=== PATIENT | female | born 1980 | race Caucasian/White ===

== ENCOUNTER 2022-04-04 09:53 | Outpatient (CLI) | payer OTHER, SELFPAY ==
[2022-04-04 11:40] LABS: Ferritin* 24.3 ng/mL (6.24-137.0)
== END 2022-04-04 09:54 | disposition home or self-care (01) ==
PROVIDERS: PCP Family Medicine; Visit Provider Family Medicine
DX: N92.0 Excessive and frequent menstruation with regular cycle (principal); R53.83 Other fatigue
CPT/HCPCS: 82728; 84443

== ENCOUNTER 2022-04-18 11:52 | Outpatient (CLI) | payer OTHER, SELFPAY ==
--- NOTE | 2022-04-18 12:15 | CRLHL7_ITS ---
For Patients: As a result of the Century Cures Act, medical imaging exams and procedure reports are released immediately into your electronic medical record. You may view this report before your referring provider. If you have questions, please contact your health care provider. INDICATION: EXCESSIVE AND FREQUENT MENSTRUATION COMPARISON: none TECHNIQUE: 2D crockett scale and color Doppler images were acquired of the pelvis using a transabdominal and transvaginal approach. FINDINGS: Sonographic images demonstrate a normal size and smooth outer contour of the uterus. Uterus measures 9.5 cm in length by 5.2 cm in AP diameter by 5.3 cm in transverse dimension. The myometrium has a heterogeneous echotexture. The endometrial lining measures 3 mm in composite thickness. The right ovary measures 3.4 x 2.4 x 2.4 cm in size and the left ovary measures 2.6 x 1.8 x 1.7 cm. The ovaries demonstrate normal arterial and venous blood flow on color Doppler analysis. There are no suspicious fluid collections within the cul-de-sac. IMPRESSION: Endometrial thickness 3 millimeters. No uterine fibroid. Dictated by Marcin Bruner MD @ 04/18/2022 1:10:43 PM (Electronically Signed)
== END 2022-04-18 11:53 | disposition home or self-care (01) ==
LOC: US 11:53
PROVIDERS: PCP Family Medicine; Visit Provider Family Medicine
DX: N92.0 Excessive and frequent menstruation with regular cycle (principal)
CPT/HCPCS: 76830; 76856

== ENCOUNTER 2022-06-10 06:25 | Day surgery (SDC) | payer OTHER, SELFPAY ==
[2022-06-10 06:39] VITALS: BMI 26.4
[2022-06-10] MEDS: LACTATED RINGERS 1000 ML 1,000 ML 100 ML IV (06:45)
[2022-06-10] MEDS: SODIUM CHLORIDE 0.9 % (FLUSH) 10 ML SYRINGE IVF (06:45)
[2022-06-10 06:47] VITALS: BP 112/72; PULSE 61; RESP 16; TEMP 36.3; O2SAT 98
[2022-06-10 06:52] LABS: Ur HCG Qualitative* Negative (Negative)
--- NOTE | 2022-06-10 08:10 | P.GYNPRC_ITS ---
Procedure Note Date Seen: 06/10/22 Procedure Details: REFERRING PHSICIAN/PROVIDER: Blanca PREOPERATIVE DIAGNOSIS: Menorrhagia, failed medical management. POSTOPERATIVE DIAGNOSIS: Menorrhagia, failed medical management. NAME OF PROCEDURE: 1. Hysteroscopy. 2. D and C 3. Susan endometrial ablation. SURGEON: Roosevelt ANESTHESIA: Monitored anesthesia care and paracervical block COMPLICATIONS: None. ESTIMATED BLOOD LOSS: Less than 10 mL. FLUID DEFICIT: 90 mL. FINDINGS: Normal-appearing endometrial cavity and tubal ostia bilaterally.. PATHOLOGY SPECIMENS: Endometrial curettings. PROCEDURE: After obtaining informed consent, the patient was taken to the operating room where she received monitored anesthesia care. She was prepared and draped in the normal sterile fashion, in the dorsal lithotomy position. An open-sided bivalve speculum was introduced into the vagina and the cervix visualized. The anterior lip of the cervix was grasped with a single-tooth tenaculum for traction. A paracervical block was then administered using a total of 10 mL of 0.25% Marcaine plain. The uterus was gently sounded. Sound length was 9 cm. The cervix length was determined to be 3.5 cm using Hegar dilators, yielding a uterine cavity length of 5.5 cm. The cervix was gently dilated to a #6 Hegar dilator. A hysteroscope was then advanced under direct visualization through the cervix into the uterine cavity. Sterile normal saline was used as distending medium. The uterine cav ity was carefully inspected with the findings noted above. The hysteroscope was then removed. The endometrial lining was then sharply curetted. The Susan device was then set to a cavity length of 5.5 cm, inserted through the cervical os into the uterine cavity to the level of the fundus, and deployed. The device was sealed against the cervix. The safety checks were then passed x2 and the 2- minute treatment cycle initiated. Following completion of the treatment cycle, the Susan device was removed. A paracervical block was then administered using a total of 10 mL of 0.25% Marcaine plain. The hysteroscope was advanced again into the uterine cavity and the uterine cavity inspected. A good ablation was noted from the internal os to fundus and to the cornua bilaterally. Pictures were taken for documentation purposes. The hysteroscope was removed. The tenaculum was removed. There was little bleeding from the tenaculum site, which was controlled with direct pressure sponge stick. All instruments were then removed. The patient tolerated the procedure well. Sponge, lap, needle, and instrument counts reported as correct x2. The patient was taken to the recovery room awake in a stable condition.
[2022-06-10] MEDS: BUPIVACAINE 0.25% 30 ML INJECTION (08:40)
--- NOTE | 2022-06-10 08:54 | W.ANESCHARGE ---
Anesthesia Charges Start Date/Time Anesthesia Start Date: 06/10/22 Anesthesia Start Time: 08:13 Stop Date/Time Anesthesia Stop Date: 06/10/22 Anesthesia Stop Time: 08:55 Summary Emergency: No
[2022-06-10 08:55] VITALS: BP 95/59; PULSE 65; RESP 16; TEMP 36.1; O2SAT 93
[2022-06-10 09:00] VITALS: BP 94/65; PULSE 67; RESP 16; O2SAT 95
--- NOTE | 2022-06-10 09:05 | W.ANESCHARGE ---
Anesthesia Charges Start Date/Time Anesthesia Start Date: 06/10/22 Anesthesia Start Time: 08:13 Stop Date/Time Anesthesia Stop Date: 06/10/22 Anesthesia Stop Time: 08:55 Summary Emergency: No
[2022-06-10 09:15] VITALS: BP 93/54; PULSE 55; RESP 16; O2SAT 95
[2022-06-10 09:30] VITALS: BP 100/66; PULSE 55; RESP 16; TEMP 36.2; O2SAT 95
[2022-06-10 09:40] VITALS: BP 102/67; PULSE 58; RESP 16; O2SAT 97
== END 2022-06-10 09:45 | disposition home or self-care (01) ==
PROVIDERS: PCP Family Medicine; Visit Provider Obstetrics & Gynecology
PROC: 0UF98ZZ Fragmentation in Uterus, Via Natural or Artificial Opening Endoscopic (ICD-10-PCS; CPT 58563; principal; 2022-06-10 07:45)
DX: N92.0 Excessive and frequent menstruation with regular cycle (principal)
CPT/HCPCS: 58563; 00952; 81025; 88305; J1100; J2250; J2405; J2704; J3010; J3490; J7120

== ENCOUNTER 2023-02-18 12:48 | Outpatient (CLI) | payer OTHER, SELFPAY ==
--- NOTE | 2023-02-18 13:00 | CRLHL7_ITS ---
For Patients: As a result of the Century Cures Act, medical imaging exams and procedure reports are released immediately into your electronic medical record. You may view this report before your referring provider. If you have questions, please contact your health care provider. BILATERAL SCREENING MAMMOGRAM WITH COMPUTER-AIDED DETECTION AND TOMOSYNTHESIS TECHNIQUE: CC and MLO views were obtained. These mammographic images have been obtained using full-field digital technique. These mammographic images were interpreted with the benefit of computer-aided detection. Breast Tomosynthesis was used in this interpretation. COMPARISON FILM: 01/03/22. FINDINGS: There are scattered areas of fibroglandular density IMPRESSION: There is no radiographic evidence for malignancy. ASSESSMENT: BI-RADS Category 1: Negative RECOMMENDATION: Routine screening mammogram in 1 year. A lay language report of this examination will be provided to the patient. Marcin Bruner M.D. Diagnostic Radiologist [email or web address] Transcribed: 5:30 p.rodo david/Dictated by: Marcin Bruner MD @ 02/19/2023 9:27:00 AM (Electronically Signed)
== END 2023-02-18 12:49 | disposition home or self-care (01) ==
LOC: MAMMO 12:48
PROVIDERS: PCP Family Medicine; Visit Provider Family Medicine
DX: Z12.31 Encounter for screening mammogram for malignant neoplasm of breast (principal)
CPT/HCPCS: 77063; 77067

== ENCOUNTER 2023-10-02 09:04 | Outpatient (CLI) | payer OTHER, SELFPAY ==
--- NOTE | 2023-10-02 09:15 | MR_ITS ---
Patient: HEVER HOLLIS Facility:?[facility] Patient ID:?[id number] Site Patient ID:?[id number] Site :?[id number] Study:?MRI-Breast W/ and W/O Cont 20 CC DOATERM-10/31/2023 3:40:48 PM Ordering Physician:CYNTHIA MORALES Final Report: Please note, study was performed on 10/02/2023. BILATERAL BREAST MRI WITHOUT AND WITH GADOLINIUM CLINICAL HISTORY: Genetic susceptibility to other malignant neoplasm. INDICATION FOR BREAST MRI: Screening breast MRI in this high-risk woman. COMPARISON STUDIES: Mammogram 02/18/2023. CONTRAST: 20 cc Dotarem. TECHNIQUE: The patient was positioned prone using a breast coil. Multiple imaging sequences were obtained using 1-1.5 mm thick slices with no gap. The image sequences include T2-weighted STIR in the axial plane, T1-weighted nonfat- saturated gradient echo in the axial plane, pre- and post-contrast T1-weighted FLASH 3D with fat suppression in the axial plane, and T1-weighted FLASH high- resolution 3D with fat suppression in the sagittal plane. Image post-processing was performed on a [employer] workstation. Complex 3D rendering including maximum intensity projections (MIPS) and volumetric renderings were obtained to optimize visualization of the extent of pathology and relationship to the nipple, skin, and chest wall. This aids in determining feasibility of breast conservation surgery. Subtraction, multiplanar reconstruction, mean curve determination, and angiogenesis mapping were also performed. The study was technically adequate. FINDINGS: Amount of Fibroglandular Tissue: Scattered fibroglandular tissue. Breast Background Enhancement: Mild. RIGHT/LEFT Breast: No suspicious enhancement in either breast. Lymph Nodes: No morphologically abnormal axillary lymph nodes. IMPRESSION: No MRI findings for malignancy in either breast. No morphologically abnormal axillary lymph nodes or intramammary lymph nodes. Recommend that the patient continue with yearly screening mammography. If screening MRIs are felt to be indicated recommend that these be offset at six-month intervals with the screening mammogram. BI-RADS Category 2: Benign Dictated by: Jessica Sanders MD @11/04/2023 9:46:38 AM jj/Dictated by: Jessica Sanders MD @ 11/04/2023 9:46:00 AM Signed by:?Jessica Sanders MD @11/04/2023 11:47:26 AM (Electronic Signature)
== END 2023-10-02 09:05 | disposition home or self-care (01) ==
LOC: MRI 09:05
PROVIDERS: PCP Family Medicine; Visit Provider Family Medicine
DX: Z12.39 Encounter for other screening for malignant neoplasm of breast (principal); Z15.01 Genetic susceptibility to malignant neoplasm of breast; Z15.09 Genetic susceptibility to other malignant neoplasm; Z15.89 Genetic susceptibility to other disease
CPT/HCPCS: 77049; A9575

== ENCOUNTER 2023-10-09 08:24 | Outpatient (CLI) | payer OTHER, SELFPAY ==
--- OUTSIDE RECORDS SUMMARY | 2023-10-09 08:27 | XMS_ITS | Encounter Summary ---
Author Name Unknown Organization [facility] Address [address] [place] [address] Care Team Providers Care Marine Diesel Technician Name Role Phone Marylin Caceres MD Primary Care Provider [phone] Encounter Details Date Type Department Care Team (Late st Contact Info) Description 06/23/2012 Correspondence [facility] [address] [place] [phone] Ruben Morin DC CHIROPRACTIC PT LIABILITY PAW Social History Tobacco Use Types Packs/Day Years Used Date Smoking Tobacco: Never Alcohol Use Standard Drinks/Week Comments Not Asked 0 (1 standard drink = 0.6 oz pur e alcohol) Sex and Gender Information Value Date Recorded Sex Assigned at Female 07/16/2021 10:37 PM PRECISION LATHE OPERATOR Gender Identity Female 07/16/2021 10:37 PM PRECISION LATHE OPERATOR Sexual Orientation Straight 07/16/2021 10 :37 PM PRECISION LATHE OPERATOR documented as of this encounter Progress Notes * Ruben Morin DC - 06/23/2012 12:00 AM CDT ISION LATHE OPERATOR documented in this encounter Plan of Treatment Not on file documented as of this encounter Visit Diagnoses Not on filedocumented in this encounter Additional Health Concerns Infection Onset Date Last Indicated Resolved Time R/O COVID19 12/28/2020 12/28/2020 12/28/2020 6:24 PM CDT documented as of this encounter Care Teams Marine Diesel Technician Relationship Specialty Start Date End Date Marylin Caceres MD [address] [place] [address] PCP - General Family Practice 02/08/19 documented as of this encounter
--- OUTSIDE RECORDS SUMMARY | 2023-10-09 08:27 | XMS_ITS | Clinical Summary ---
Author Name Unknown Organization [facility] Address [place], [place] [address] Care Team Providers Care Bleacher Lard Name Role Phone Nidia Rios MD Primary Care Provider + Allergies Active Allergy Reactions Criticality Noted Date Comments Latex Hives 03/27/2015 Medications Medication Sig Dispensed Refills Start Date End Date Status PNV WITH CA,NO.72/IRON/FA ( VITAMINS LOW IRON ORAL) Take by mouth. 0 Active escitalopram oxalate (LEXAPRO) 20 mg tablet 0 07/10/2020 Ac tive spironolactone (ALDACTONE) 50 mg tablet Take 50 mg by mouth every morning. 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 Other known or suspected fet al abnormality, not elsewhere classified, affecting management of mother, unspecified as to episode of care 02/17/2008 Encounters Date Type Department Care Team Description 07/24/[address] [facility] [place] [address] [facility] [address] [place] [address] Kitty Pastrana MS, [facility] Results (Cancer genetic testing results) 07/23/[address] [facility] [place] [address] [facility] [address] [place], [place] [address] Kitty Pastrana, MS, [facility] Results (Cancer genetic testing results) from Last 3 Months Social History Tobacco Use Types Packs/Day Years Used Date Smoking Tobacco: Never Alcohol Use Standard Drinks/Week Comments Yes 0 (1 standard drink = 0.6 oz pur e alcohol) Sex and Gender Information Value Date Recorded Sex Assigned at Not on file Gender Identity Not on file Sexual Orientation Not on file Obstetrics History Last Filed Vital Signs Vital Sign Reading Time Taken Comments Blood Pressure 107/72 03/31/2022 3:53 PM CDT Pulse 86 03/31/2022 3:53 PM CDT Temperature 36.9 ??C (98.5 ??F) 03/31/2022 3:53 PM CD T Respiratory Rate 14 03/31/2022 3:53 PM CDT Oxygen Saturation 98% 03/31/2022 3:53 PM CDT Inhaled Oxygen Concentration - - Weight 73.5 kg (162 lb) 03/31/2022 3:53 PM CDT Height 170.2 cm (5' 7) 03/31/2022 3:53 PM CDT Body Mass Index 25.37 03/31/2022 3:53 PM CDT Plan of Treatment Health Maintenance Due Date Last Done Comments Tdap 1992 Depression screening for age 12+ 1993 HIV for age 15-65 1996 BMI (ht and wt on same day) for age 18+ 1999 Hepatitis C screening for age 18-79 1999 Tetanus booster 2001 Pap test for age 21-65 05/28/2020 05/28/2017, 2016 Influenza for age 9-49 04/24/2023 COVID-19 vaccine series Completed 05/23/20, 05/03/2022, 06/21/2021, Additional history exists Pneumococcal series for age 6-64 Aged Out No longer eligible based on patient's age to complete this topic Care Teams Bleacher Lard Relationship Specialty Start Date End Date Nidia Rios MD [address] [place] [address] PCP - General Family Practice 06/30/23
--- OUTSIDE RECORDS SUMMARY | 2023-10-09 08:27 | XMS_ITS | Encounter Summary ---
Author Name Unknown Organization [facility] Address [address] [place] [address] Care Team Providers Care Hotel Front Desk Clerk Name Role Phone Marylin Caceres MD Primary Care Provider [phone] Reason for Visit * Reason Comments Problem Focused Exam UL canine-gum tende r and sore Encounter Details Date Type Department Care Team (Late st Contact Info) Description 04/01/2023 Telephone [facility] [address] [address] No Primary/Referring, Phy Problem Focused Exam (UL canine-gum tender and sore) Social History Tobacco Use Types Packs/Day Years Used Date Smoking Tobacco: Never Smokeless Tobacco: Never Alcohol Use Standard Drinks/Week Comments Yes 1 (1 standard drink = 0.6 oz pur e alcohol) Sex and Gender Information Value Date Recorded Sex Assigned at Female 07/16/2021 10:37 PM EDUCATION ASSISTANT Gender Identity Female 07/16/2021 10:37 PM EDUCATION ASSISTANT Sexual Orientation Straight 07/16/2021 10 :37 PM EDUCATION ASSISTANT documented as of this encounter Plan of Treatment Not on file documented as of this encounter Visit Diagnoses Not on filedocumented in this encounter Care Teams Hotel Front Desk Clerk Relationship Specialty Start Date End Date Marylin Caceres MD [address] [place] [address] PCP - General Family Practice 02/08/19 documented as of this encounter
--- OUTSIDE RECORDS SUMMARY | 2023-10-09 08:27 | XMS_ITS | Encounter Summary ---
Author Name Unknown Organization [facility] Address [address] [place] [address] Care Team Providers Care Chemical Treatment Plant Technician Name Role Phone Marylin Caceres MD Primary Care Provider [phone] Reason for Visit * Reason Comments Dental Hygiene NO CC Encounter Details Date Type Department Care Team (Late st Contact Info) Description 06/10/2023 10:10 AM CDT Office Visit [facility] [address] [address] Marilee Akers, [facility] [address] [place] [id number] Dental Hygiene (NO CC/) Social History Tobacco Use Types Packs/Day Years Used Date Smoking Tobacco: Never Smokeless Tobacco: Never Alcohol Use Standard Drinks/Week Comments Yes 1 (1 standard drink = 0.6 oz pur e alcohol) Sex and Gender Information Value Date Recorded Sex Assigned at Female 07/16/2021 10:37 PM MAKE UP EDITOR Gender Identity Female 07/16/2021 10:37 PM MAKE UP EDITOR Sexual Orientation Straight 07/16/2021 10 :37 PM MAKE UP EDITOR documented as of this encounter Last Filed Vital Signs Vital Sign Reading Time Taken Comments Blood Pressure - - Pulse 69 06/10/2023 10:15 AM CDT Temperature - - Respiratory Rate - - Oxygen Saturation - - Inhaled Oxygen Concentration - - Weight - - Height - - Body Mass Index - - documented in this encounter Progress Notes * Marilee Akers RD - 06/10/2023 10:10 AM CDT HYGIENE PROPHY NOTE COLLABORATIVE AGREEMENT: The patient consents to have charting, radiographs, and prophylaxis by [facility] performed with the understanding that this care is not a substitute for an examination by a dentist. These activities were performed under a collaborating agreement with Emely Leach DDS (License#: [id number]) PROCEDURAL PAUSE: Patient identity verified: Yes Treatment plan/site verified with the patient: Yes Instruments/equipment verified: Yes Any medication/allergy contraindications: No PRESENTATION: Plaque: Generalized light Calculus: Localized, moderate supra-gingival , sub-gingival, interproximal, mandibular anterior, and posterior buccal Stain: None Bleeding: Localized light Gingival tissue: Normal ACTIVITIES: Hand scale, Essential selective polishing, Flossed all contacts, and OHI NEXT PLANNED HYGIENE VISIT: Hygiene Prophy with exam Marilee Akers RDH 06/10/2023, 10:56 AM --End of Note-- * Emely Leach DDS - 06/10/2023 10:10 AM CDT RECALL EXAM NOTE REASON FOR VISIT/CHIEF COMPLAINT: Carin is a 42 y.o. female who presents for Dental Hygiene (NO CC/) CHART REVIEW: Reviewed with patient: Medical history, Dental history, Problem list, Periodontal charting, and Radiographs. SOFT TISSUE, HEAD AND NECK EXAMINATION: Lips: normal Tongue: crenations Palate: normal Throat: normal Floor of the mouth: normal Mucosa: normal Head and neck: normal TMD EVALUATION: Palpation Pain: None Joint Sounds: None Pain with Range of Motion: None OCCLUSAL EXAMINATION: Unchanged COSMETIC CONCERNS: Patient's Perception: Acceptable Dentist's Perception: Acceptable TREATMENT REVIEW AND FOLLOW-UP: Discussed the Dental findings, Prognosis, and Treatment options with the patient. All questions answered and informed consent was obtained. Planned Recall Interval: Examination: 6 months Recall prophy: 6 months RX for nikki syed. Open contact between # 20 and # 19 recommended filling on # 20 D Next Planned Visit: recall Emely Leach DDS 06/10/2023, 10:39 AM --End of Note-- documented in this encounter Plan of Treatment Scheduled Orders Name Type Priority Associated Diagnoses Order Schedule PROPHYLAXIS-ADULT RECALL Dental Procedures Routine 1 Occurrences starting 06/10/2023 PERIODIC ORAL EVALUATION Dental Procedures Routine 1 Occurrences starting 06/10/2023 documented as of this encounter Procedures Procedure Name Priority Date/Time Associated Diagnosis Comments [id number] Routine 06/10/2023 10 :10 AM CDT Localized gingival recession PERIODIC ORAL EVALUATION Routine 06/10/2023 10:10 AM CDT Localized gingival recession PROPHYLAXIS-ADULT RECALL Routine 06/10/2023 10:10 AM CDT Localized gingival recession documented in this encounter Visit Diagnoses Diagnosis Failure of dental latter-day to preserve anatomical integrity with adjacent teeth- Primary Localized gingival recession Gingival recession, localized documented in this encounter Care Teams Chemical Treatment Plant Technician Relationship Specialty Start Date End Date Marylin Caceres MD [address] [place] [address] PCP - General Family Practice 02/08/19 documented as of this encounter
--- OUTSIDE RECORDS SUMMARY | 2023-10-09 08:27 | XMS_ITS | Encounter Summary ---
Author Name Unknown Organization [facility] Address [address] [place] [address] Care Team Providers Care Belt Back Operator Name Role Phone Marylin Caceres MD Primary Care Provider [phone] Reason for Visit * Reason Comments Restorative Services Composite filling # 20. Encounter Details Date Type Department Care Team (Late st Contact Info) Description 07/08/2023 8:00 AM TOOL MACHINE SHOP SUPERVISOR Office Visit [facility] Dental [address] [id number] Emely Leach, DDS [address] [place], [place] [id number] Restorative Services (Composite filling # 20.) Social History Tobacco Use Types Packs/Day Years Used Date Smoking Tobacco: Never Smokeless Tobacco: Never Alcohol Use Standard Drinks/Week Comments Yes 1 (1 standard drink = 0.6 oz pur e alcohol) Sex and Gender Information Value Date Recorded Sex Assigned at Female 07/16/2021 10:37 PM TOOL MACHINE SHOP SUPERVISOR Gender Identity Female 07/16/2021 10:37 PM TOOL MACHINE SHOP SUPERVISOR Sexual Orientation Straight 07/16/2021 10 :37 PM TOOL MACHINE SHOP SUPERVISOR documented as of this encounter Progress Notes * Emely Leach DDTiffany - 07/08/2023 8:00 AM CST DENTAL VISIT NOTE Subjective Reason for Visit/Chief Complaint: Carin is a 42 y.o. female who presents for Restorative Services (Composite filling # 20.) Chief Complaint: No CC Objective/Assessment Chart Review: The following information was reviewed with the patient: Medical history, Dental history, Problem list, Periodontal charting, and Radiographs. RADIOGRAPHIC INTERPRETATION: #20 Caries DIAGNOSIS: Defective dental buddhism (primary encounter diagnosis) PROGNOSIS: #20 Favorable Plan Treatment Discussion: I discussed the Dental findings, Prognosis, Treatment options, Risks and complications associated with procedure, and Billing/Treatment estimate with patient. All questions answered and the patient gave informed consent to proceed with dental treatment/services. Procedural Pause: Patient identity verified: Yes Treatment plan/site verified with the patient: Yes Instruments/equipment verified: Yes Any medication/allergy contraindications: No Completed Procedures: ANESTHESIA: Topical with 20% benzocaine 1.0 carpules 2% lidocaine with 1:100,000 epinephrine was administered with MURPHY in Mandibular No adverse side effects observed. Anesthesia was administered by Emely Leach DDS COMPOSITE HOAHAOISM, #20: Prepared with complete caries removal Isolated area with high speed suction, cotton rolls, and a cheek guard. Applied desensitizer Bonding with Scotchbond Vassar Plus material Preparation filled with composite material : Shade: A3 Polishing adjuncts: Enhance Composite Polishing Cup Verified occlusion, contacts, margins, and aesthetics POST-OP INSTRUCTIONS: Patient was advised of normal post-operative instructions, potential for post-operative sensitivity, potential need for additional treatment because of proximity to the pulp, and the need to exercise care because of the risk of fracture Ibuprofen (Advil) 600 mg PO q 6 hours Care was assisted by BRENDA Connell Next Planned Visit: recall Emely Leach DDS 07/08/2023, 8:44 AM --End of Progress Note-- 8:02 AM MACHINE SHOP SUPERVISOR documented in this encounter Plan of Treatment Not on file documented as of this encounter Procedures Procedure Name Priority Date/Time Associated Diagnosis Comments 20 DO RESIN-BASED COMPOSITE-2 SURF-POSTERIOR Routine 07/08/2023 8:00 AM TOOL MACHINE SHOP SUPERVISOR Defective dental buddhism Dental caries limited to outer third of dentin Failure of dental buddhism to preserve anatomical integrity with adjacent teeth documented in this encounter Visit Diagnoses Diagnosis Defective dental buddhism- Primary Unspecified unsatisfactory buddhism of tooth Dental caries limited to outer third of dentin Failure of dental buddhism to preserve anatomical integrity with adjacent teeth documented in this encounter Care Teams Belt Back Operator Relationship Specialty Start Date End Date Marylin Caceres MD [address] [place] [address] PCP - General Family Practice 02/08/19 documented as of this encounter
--- OUTSIDE RECORDS SUMMARY | 2023-10-09 08:27 | XMS_ITS | Clinical Summary ---
Author Name Unknown Organization [facility] Address [address] [place] [address] Care Team Providers Care Music Rehabilitation Therapist Name Role Phone Marylin Caceres MD Primary Care Provider [phone] Source Comments You are receiving this document as you are listed as the primary care provider,follow-up provider, or the patient has been referred to you for consultation.This is in compliance with the Medicare and[facility] EHR Incentive Program,which states Providers who transition their patient to another setting of careor provider of care or refers their patient to another provider of care shouldprovide summary care record for each transition of care or referral. [facility] Allergies Active Allergy Reactions Criticality Noted Date Comments Latex Rash High 06/22/2012 Medications Medication Sig Dispensed Refills Start Date End Date Status cetirizine (ZYRTEC) 10 MG tablet Take 1 Tablet (10 mg) by mouth daily. Active Multiple Vitamin (MULTIVITAMINS OR) Active escitalopram oxalate (LEXAPRO) 20 MG tablet 07/10/2020 Active sodium fluoride dental (PREVIDENT) 1.1 % gel Apply thin ribbon to teeth with toothbrush or mouthpiece tray for at least 1 minute. Spit out gel dont and rinse mouth for 30 min 60 g 6 07/11/2020 Active Glucosamine-Chondroi t-Vit C-Mn (GLUCOSAMINE CHONDR 1500 COMPLX OR) 08/24/2019 Active [place]-3 Fatty Acids (FISH-EPA OR) 08/24/2019 Active sodium fluoride dental (PREVIDENT) 1.1 % gel Apply thin ribbon to teeth with toothbrush or mouthpiece tray for at least 1 minute. Spit out gel and rinse mouth thoroughly. 60 g 6 07/17/2021 Active spironolactone (ALDACTONE) 50 MG tablet Take 1 Tablet (50 mg) by mouth daily. 01/20/2022 Active tretinoin (RETIN-A) 0.025 % cream Apply topically daily at bedtime. 08/22/2021 Active cyclobenzaprine (FLEXERIL) 5 MG tablet 09/13/2022 Active HYDROcodone-acetamin ophen (NORCO) 5-325 MG tablet 09/13/2022 Active methylPREDNISolone (MEDROL) 4 MG tablet 09/13/2022 Acti ve oxyCODONE (ROXICODONE) 5 MG immediate release tablet Take 1 Tablet (5 mg) by mouth every 6 hours. 06/10/2022 Active sodium fluoride dental (PREVIDENT) 1.1 % gel Apply thin ribbon to teeth with toothbrush or mouthpiece tray for at least 1 minute. Spit out gel and rinse mouth thoroughly. 60 g 6 06/10/2023 Active Active Problems Problem Noted Date Diagnosed Date Depression with anxiety 08/24/2019 Sciatica 08/11/2012 Lumbago 06/29/2012 Kidney stones, calcium oxalate 05/24/2006 Social History Tobacco Use Types Packs/Day Years Used Date Smoking Tobacco: Never Smokeless Tobacco: Never Alcohol Use Standard Drinks/Week Comments Yes 1 (1 standard drink = 0.6 oz pur e alcohol) Sex and Gender Information Value Date Recorded Sex Assigned at Female 07/16/2021 10:37 PM NITRO MAN Gender Identity Female 07/16/2021 10:37 PM NITRO MAN Sexual Orientation Straight 07/16/2021 10 :37 PM NITRO MAN Last Filed Vital Signs Vital Sign Reading Time Taken Comments Blood Pressure 99/64 02/08/2019 10:03 AM CDT Pulse 69 06/10/2023 10:15 AM CDT Temperature 36.9 ??C (98.4 ??F) 09/25/2012 10:[address] Respiratory Rate 16 09/25/2012 10:04 AM NITRO MAN Oxygen Saturation 96% 09/25/2012 10:04 AM NITRO MAN Inhaled Oxygen Concentration - - Weight 68 kg (150 lb) 10/05/2012 8:21 AM NITRO MAN Height 170.2 cm (5' 7) 08/13/2012 8:22 AM NITRO MAN Body Mass Index 23.49 08/13/2012 8:22 AM NITRO MAN Plan of Treatment Health Maintenance Due Date Last Done Comments Hep C Screening (Preventive Services) 1981 HepB (1) 1981 HIV Screening (Preventive Services) 1997 Adult Preventive Visit 1999 Cervical Cancer Screening Due 04/22/2012 04/21/2012 COVID-19 Vaccine (3 - season) 2023 12/11/2020, 11/20/2020 Influenza (#1) 2023 06/01/2020, 05/25, 05/24/2019, Additional history exists DTaP/Tdap/Td (3 - Tdap) 03/16/2025 03/16/2015, 10/24 Zoster/Shingles (1 of 2) 2031 HepA Aged Out 11/18/2010, 10/24/2009 No lo nger eligible based on patient's age to complete this topic HPV Vaccine Aged Out No longer eligi ble based on patient's age to complete this topic Hib Aged Out No longer eligi ble based on patient's age to complete this topic IPV (Polio) Aged Out No longer eligi ble based on patient's age to complete this topic MCV4 Aged Out No longer eligi ble based on patient's age to complete this topic Pneumococcal Aged Out No longer eligi ble based on patient's age to complete this topic Care Teams Music Rehabilitation Therapist Relationship Specialty Start Date End Date Marylin Caceres MD [address] [place] [address] PCP - General Family Practice 02/08/19
--- NOTE | 2023-10-09 09:43 | W.ANESCHARGE ---
Anesthesia Charges Start Date/Time Anesthesia Start Date: 10/09/23 Anesthesia Start Time: 09:15 Stop Date/Time Anesthesia Stop Date: 10/09/23 Anesthesia Stop Time: 09:41
--- NOTE | 2023-10-09 11:05 | W.ANESCHARGE ---
Anesthesia Charges Start Date/Time Anesthesia Start Date: 10/09/23 Anesthesia Start Time: 09:15 Stop Date/Time Anesthesia Stop Date: 10/09/23 Anesthesia Stop Time: 09:41
== END 2023-10-09 08:25 | disposition home or self-care (01) ==
LOC: OP CLINIC 08:25
PROVIDERS: PCP Family Medicine; Visit Provider Internal Medicine
DX: Z12.11 Encounter for screening for malignant neoplasm of colon (principal)
CPT/HCPCS: 00811; 00812; 45378; J2704

== ENCOUNTER 2024-03-04 07:46 | Outpatient (CLI) | payer OTHER, SELFPAY ==
--- OUTSIDE RECORDS SUMMARY | 2024-03-04 07:49 | XMS_ITS | Encounter Summary ---
Author Organization [facility] Address [address], [place] [address] Care Team Providers Care Logistics Associate Name Role Phone Marylin Caceres MD Primary Care Provider [phone] Reason for Visit * Reason Comments Dental Exam none Dental Hygiene Encounter Details Date Type Department Care Team (Late st Contact Info) Description 01/06/2024 7:10 AM CDT Office Visit [facility] [place] [id number] [place] [id number] [facility] [id number] [place] [phone] Dental Exam (none); Dental Hygiene Social History Tobacco Use Types Packs/Day Years Used Date Smoking Tobacco: Never Smokeless Tobacco: Never Alcohol Use Standard Drinks/Week Comments Yes 1 (1 standard drink = 0.6 oz pur e alcohol) Sex and Gender Information Value Date Recorded Sex Assigned at Female 07/16/2021 10:37 PM CORRECTION OFFICER [employer] OR [employer] JAIL Gender Identity Female 07/16/2021 10:37 PM CORRECTION OFFICER [place] [employer] [place] [employer] Sexual Orientation Straight 07/16/2021 10 :37 PM CORRECTION OFFICER [employer] documented as of this encounter Last Filed Vital Signs Vital Sign Reading Time Taken Comments Blood Pressure - - Pulse 61 01/06/2024 7:21 AM CDT Temperature - - Respiratory Rate - - Oxygen Saturation - - Inhaled Oxygen Concentration - - Weight - - Height - - Body Mass Index - - documented in this encounter Patient Instructions * Patient Instructions* Emely Leach, DDS - 01/06/2024 7:10 AM CDT Your next hygiene recall is due 07/04/2024 YOUR PERSONAL DENTAL RISK REPORT CARIES (TOOTH DECAY) PERIODONTAL (GUM) DISEASE ORAL CANCER low MOD high LOW mod high LOW elevated ^ ^ ^ Risk Level MODERATE Risk Factors Caries (tooth decay) in the last 2 years. Use of antibacterial oral rinse to reduce decay causing bacteria in the mouth. How To Reduce Your Risk Hygiene recall at 6 to 12 months. [place] with fluoride toothpaste twice daily or as recommended. Rinse with fluoride rinse once to twice daily at times other than when brushing. Instruction from dental professional on brushing, flossing, and use of oral hygiene products. Radiographs to detect decay. Risk Level LOW Risk Factors Intermediate levels of plaque present. How To Maintain Your Low Risk Return visit with the dental hygienist at 6 month intervals to assess periodontal condition and provide necessary treatment. Use of antibacterial oral rinse to reduce decay causing bacteria in the mouth. Congratulations on your low risk for gum disease. Making healthy life style choices including brushing twice a day; daily flossing; and not using tobacco should help you maintain this low risk. Risk Level LOW Risk Factors Incidence of oral cancer increases with age. How To Maintain Your Low Risk Congratulations on your low risk for oral cancer. Making healthy life style choices such as not using tobacco and low to moderate alcohol use should help you maintain this low risk. Carin, we look forward to seeing you at your next visit! Thank you for choosing [facility]. documented in this encounter Progress Notes * Emely Leach DDS - 01/06/2024 7:10 AM CDT RECALL EXAM NOTE REASON FOR VISIT/CHIEF COMPLAINT: Carin is a 43 y.o. female who presents for Dental Exam (none) andDental Hygiene CHART REVIEW: Reviewed with patient: Medical history, Dental history, Problem list, Periodontal charting, and Radiographs. SOFT TISSUE, HEAD AND NECK EXAMINATION: Lips: normal Tongue: normal Palate: normal Throat: normal Floor of the [...] Examination: 6 months Recall prophy: 6 months No treatment indicated at this time. Next Planned Visit: recall. Emely Leach DDS 01/06/2024, 7:41 AM --End of Note-- * Emilia Dutton RDH - 01/06/2024 7:10 AM CDT HYGIENE PROPHY NOTE COLLABORATIVE AGREEMENT: The patient consents to have charting and prophylaxis by the dental hygienist performed with the understanding that this care is not a substitute for an examination by a dentist. These activities were performed under a collaborating agreement with Collin Shelby DDS (License #: [id number]) PROCEDURAL PAUSE: Patient identity verified: Yes Treatment plan/site verified with the patient: Yes Instruments/equipment verified: Yes Any medication/allergy contraindications: No PRESENTATION: Plaque: Localized, light supra-gingival and posterior buccal Calculus: Localized, light supra-gingival , sub-gingival, interproximal, and mandibular anterior Stain: Localized, light coffee/tea Bleeding: None Gingival tissue: Normal ACTIVITIES/EDUCATION: Hand scale, Essential selective polishing, Flossed all contacts, and OHI NEXT PLANNED HYGIENE VISIT: Hygiene Prophy with exam Emilia Dutton RDH 01/06/2024, 7:43 AM --End of Note-- documented in this encounter Plan of Treatment Scheduled Orders Name Type Priority Associated Diagnoses Order Schedule PROPHYLAXIS-ADULT RECALL Dental Procedures Routine 1 Occurrences starting 01/06/2024 PERIODIC ORAL EVALUATION Dental Procedures Routine 1 Occurrences starting 01/06/2024 [id number] Dental Procedures Routine 1 Occurrences starting 01/06/2024 TOPICAL FLUORIDE VARNISH Dental Procedures Routine 1 Occurrences starting 01/06/2024 documented as of this encounter Procedures Procedure Name Priority Date/Time Associated Diagnosis Comments PERIODIC ORAL EVALUATION Routine 01/06/2024 7:10 AM CDT Localized gingival recession PROPHYLAXIS-ADULT RECALL Routine 01/06/2024 7:10 AM CDT Localized gingival recession documented in this encounter Visit Diagnoses Diagnosis Localized gingival recession- Primary Gingival recession, localized documented in this encounter Care Teams Logistics Associate Relationship Specialty Start Date End Date Marylin Caceres MD [address] [place] [address] PCP - General Family Practice 02/08/19 documented as of this encounter
--- OUTSIDE RECORDS SUMMARY | 2024-03-04 07:49 | XMS_ITS | Clinical Summary ---
Author Organization [facility] Address [address] [place] [address] Care Team Providers Care Rotary Soil Stabilizer Operator Name Role Phone Marylin Caceres MD Primary Care Provider [phone] Source Comments You are receiving this document as you are listed as the primary care provider,follow-up provider, or the patient has been referred to you for consultation.This is in compliance with the Medicare and[facility] Incentive [facility],which states Providers who transition their patient to another setting of careor provider of care or refers their patient to another provider of care shouldprovide summary care record for each transition of care or referral. [facility] Allerg[facility] Active Allergy Reactions Criticality Noted Date Comments Latex Rash High 06/22/2012 Medications Medication Sig Dispensed Refills Start Date End Date Status cetirizine (ZYRTEC) 10 MG tablet Take 1 Tablet (10 mg) by mouth daily. Active Multiple Vitamin (MULTIVITAMINS OR) Active escitalopram oxalate (LEXAPRO) 20 MG tablet 07/10/2020 Active Glucosamine-Chondroi t-Vit C-Mn (GLUCOSAMINE CHONDR 1500 COMPLX OR) 08/24/2019 Active [place]-3 Fatty Acids (FISH-EPA OR) 08/24/2019 Active spironolactone (ALDACTONE) 50 MG tablet Take 1 Tablet (50 mg) by mouth daily. 01/20/2022 Active tretinoin (RETIN-A) 0.025 % cream Apply topically daily at bedtime. 08/22/2021 Active sodium fluoride dental (PREVIDENT) 1.1 % gel Apply thin ribbon to teeth with toothbrush or mouthpiece tray for at least 1 minute. Spit out gel and rinse mouth thoroughly. 60 g 6 06/10/2023 Active Active Problems Problem Noted Date Diagnosed Date Depression with anxiety 08/24/2019 Sciatica 08/11/2012 Lumbago 06/29/2012 Kidney stones, calcium oxalate 05/24/2006 Encounters Date Type Department Care Team Description 01/06/2024 7:10 AM CDT [facility] [place] [id number] [place] [id number] [facility] Dental Exam (none); Dental Hygiene from Last 3 Months Social History Tobacco Use Types Packs/Day Years Used Date Smoking Tobacco: Never Smokeless Tobacco: Never Alcohol Use Standard Drinks/Week Comments Yes 1 (1 standard drink = 0.6 oz pur e alcohol) Sex and Gender Information Value Date Recorded Sex Assigned at Female 07/16/2021 10:37 PM COMPOSITION FLOOR SETTER Gender Identity Female 07/16/2021 10:37 PM COMPOSITION FLOOR SETTER Sexual Orientation Straight 07/16/2021 10 :37 PM COMPOSITION FLOOR SETTER Last Filed Vital Signs Vital Sign Reading Time Taken Comments Blood Pressure 99/64 02/08/2019 10:03 AM CDT Pulse 61 01/06/2024 7:21 AM CDT Temperature 36.9 ??C (98.4 ??F) 09/25/2012 10:[address] Respiratory Rate 16 09/25/2012 10:04 AM COMPOSITION FLOOR SETTER Oxygen Saturation 96% 09/25/2012 10:04 AM COMPOSITION FLOOR SETTER Inhaled Oxygen Concentration - - Weight 68 kg (150 lb) 10/05/2012 8:21 AM COMPOSITION FLOOR SETTER Height 170.2 cm (5' 7) 08/13/2012 8:22 AM COMPOSITION FLOOR SETTER Body Mass Index 23.49 08/13/2012 8:22 AM COMPOSITION FLOOR SETTER Plan of Treatment Health Maintenance Due Date Last Done Comments Hep C Screening (Preventive Services) 1981 Mammogram 1981 HIV Screening (Preventive Services) 1997 Adult Preventive Visit 1999 HepB (1) 2000 Cervical Cancer Screening Due 04/22/2012 04/21/2012 COVID-19 Vaccine ( season) 2023 12/11/2020, 11/20/2020 Influenza (#1) 2024 06/01/2020, 05/25, 05/24/2019, Additional history exists DTaP/Tdap/Td [...] on patient's age to complete this topic Procedures Procedure Name Priority Date/Time Associated Diagnosis Comments PERIODIC ORAL EVALUATION Routine 01/06/2024 7:10 AM CDT Localized gingival recession PROPHYLAXIS-ADULT RECALL Routine 01/06/2024 7:10 AM CDT Localized gingival recession from Last 3 Months Care Teams Rotary Soil Stabilizer Operator Relationship Specialty Start Date End Date Marylin Caceres MD [address] [place] [address] PCP - General Family Practice 02/08/19
--- OUTSIDE RECORDS SUMMARY | 2024-03-04 07:49 | XMS_ITS | Clinical Summary ---
Author Organization [facility] Address [place], [place] [address] Care Team Providers Care Ergonomics Consultant Name Role Phone Nidia Rios MD Primary Care Provider + Allergies Active Allergy Reactions Criticality Noted Date Comments Latex Hives 03/27/2015 Medications Medication Sig Dispensed Refills Start Date End Date Status PNV WITH CA,NO.72/IRON/FA ( VITAMINS LOW IRON ORAL) Take by mouth. Active escitalopram oxalate (LEXAPRO) 20 mg tablet 07/10/2020 Ac tive spironolactone (ALDACTONE) 50 mg tablet Take 50 mg by mouth every morning. 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 Other known or suspected fet al abnormality, not elsewhere classified, affecting management of mother, unspecified as to episode of care 02/17/2008 Social History Tobacco Use Types Packs/Day Years [...] 05/28/2020 05/28/2017, 2016 Influenza for age 9-49 04/24/2024 COVID-19 vaccine series Completed 05/23/20 23, 05/03/2022, 06/21/2021, Additional history exists Pneumococcal series for age 6-64 Aged Out No longer eligible based on patient's age to complete this topic Procedures Procedure Name Priority Date/Time Associated Diagnosis Comments FASHION PHOTOGRAPHER THIN PREP PAP SCREEN IMAGED Routine 05/28/2017 1:30 PM CDT from Last 3 Months or Most Recently Relevant to Health Maintenance Results * FASHION PHOTOGRAPHER THIN PREP PAP SCREEN IMAGED (05/28/2017 1:30 PM CDT) Case Report Gynecologic Cytology Report ? Case: [id number] ? Authorizing Provider: ??Marylin Caceres MD ? Collected: ? 05/28/2017 1330 ? First Screen: ?Candy Myrick ?Received: ?06/01/2017 0811 ? Specimen: ?FASHION PHOTOGRAPHER ThinPrep Vial Screening, Cervical/Vaginal ? 06/08/2017 7:06 AM T [facility] INTERPRETATION/ RESULT NEGATIVE FOR INTRAEPITHELIAL LESION OR MALIGNANCY (NIL) (none) 06/08/2017 7:06 AM [facility] NISM(S) Fungal organisms morphologically consistent with Claudia species 06/08/2017 7:06 AM [facility] SPECIMEN ADEQUACY Satisfactory for evaluation Endocervical component present 06/08/2017 7:06 AM [facility] HPV REQUEST HPV and PAP 06/08/2017 7:06 AM [facility] Date of LMP 04/29/2017 06/08/2017 7:06 AM [facility] Automated Review Successful 06/08/2017 7:06 AM [facility] Comment:Specimen processed s uccessfully by automated strand galvanizer device, ThinPrep Imaging System, [employer] ANCILLARY TESTING FASHION PHOTOGRAPHER HPV Ordered, Please see separate report 06/08/2017 7:06 AM [facility] Note The pap test is a screening technique, not a diagnostic procedure. ??It is used primarily to screen for squamous cancers and precursor lesions. ??Published studies have shown that it is subject to both false negative and false positive results. ??The pap test should not be used as the sole means to diagnose or exclude pre-malignant and malignant lesions. Interpreted at [facility] ([facility], [facility], [facility], [facility], [facility], [facility], [facility]) 06/08/2017 7:06 AM T [facility] Other (Cervical/Vagina l) 05/28/2017 1:30 PM CDT 06/01/2017 8:11 AM CDT Marylin Caceres MD PATHOLOGY/CYTOLOGY [facility] [address] [place] [address], from Last 3 Months or Most Recently Relevant to Health Maintenance Care Teams Ergonomics Consultant Relationship Specialty Start Date End Date Nidia Rios MD [address] [place] [address] PCP - General Family Practice 06/30/23
--- OUTSIDE RECORDS SUMMARY | 2024-03-04 07:49 | XMS_ITS | Encounter Summary ---
Author Organization [facility] Address [address] [place] [address] Care Team Providers Care Crime Data Specialist Name Role Phone Marylin Caceres MD Primary Care Provider [phone] Encounter Details Date Type Department Care Team (Late st Contact Info) Description 06/23/2012 Correspondence [facility] [address] [place] [phone] Ruben Morin DC CHIROPRACTIC PT LIABILITY PAW Social History Tobacco Use Types Packs/Day Years Used Date Smoking Tobacco: Never Alcohol Use Standard Drinks/Week Comments Not Asked 0 (1 standard drink = 0.6 oz pur e alcohol) Sex and Gender Information Value Date Recorded Sex Assigned at Female 07/16/2021 10:37 PM JACQUARD CARD CUTTER Gender Identity Female 07/16/2021 10:37 PM JACQUARD CARD CUTTER Sexual Orientation Straight 07/16/2021 10 :37 PM JACQUARD CARD CUTTER documented as of this encounter Progress Notes * Ruben Morin DC - 06/23/2012 12:00 AM CDT UARD CARD CUTTER documented in this encounter Plan of Treatment Not on file documented as of this encounter Visit Diagnoses Not on filedocumented in this encounter Additional Health Concerns Infection Onset Date Last Indicated Resolved Time R/O COVID19 12/28/2020 12/28/2020 12/28/2020 6:24 PM CDT documented as of this encounter Care Teams Crime Data Specialist Relationship Specialty Start Date End Date Marylin Caceres MD [address] [place] [address] PCP - General Family Practice 02/08/19 documented as of this encounter
--- NOTE | 2024-03-04 08:15 | CRLHL7_ITS ---
For Patients: As a result of the Century Cures Act, medical imaging exams and procedure reports are released immediately into your electronic medical record. You may view this report before your referring provider. If you have questions, please contact your health care provider. BILATERAL SCREENING MAMMOGRAM WITH COMPUTER-AIDED DETECTION AND TOMOSYNTHESIS TECHNIQUE: CC and MLO views were obtained. These mammographic images have been obtained using full-field digital technique. These mammographic images were interpreted with the benefit of computer-aided detection. Breast Tomosynthesis was used in this interpretation. COMPARISON FILM: 02/18/23, 01/03/22. FINDINGS: There are scattered areas of fibroglandular density. IMPRESSION: There is no radiographic evidence for malignancy. ASSESSMENT: BI-RADS Category 1: Negative RECOMMENDATION: Routine screening mammogram in 1 year. A lay language report of this examination will be provided to the patient. Marcin Bruner M.D. Diagnostic Radiologist [email or web address] SP/Dictated by: Marcin Bruner MD @ 03/07/2024 11:33:00 AM (Electronically Signed)
== END 2024-03-04 07:47 | disposition home or self-care (01) ==
LOC: MAMMO 07:47
PROVIDERS: PCP Family Medicine; Visit Provider Family Medicine
DX: Z12.31 Encounter for screening mammogram for malignant neoplasm of breast (principal); Z00.00 Encounter for general adult medical examination without abnormal findings; E78.5 Hyperlipidemia, unspecified; R53.83 Other fatigue; E66.3 Overweight; Z13.9 Encounter for screening, unspecified
CPT/HCPCS: 77063; 77067; 80053; 80061

== ENCOUNTER 2024-06-03 09:28 | Outpatient (CLI) | payer OTHER, SELFPAY ==
--- OUTSIDE RECORDS SUMMARY | 2024-06-04 16:10 | XMS_ITS | Clinical Summary ---
Author Organization [facility] Address [address] [place] [address] Care Team Providers Care Sifter And Miller Name Role Phone Marylin Caceres MD Primary Care Provider [phone] Source Comments You are receiving this document as you are listed as the primary care provider,follow-up provider, or the patient has been referred to you for consultation.This is in compliance with the Medicare and[facility] Cent[facility]aid EHR Incentive Program,which states Providers who transition their patient to another setting of careor provider of care or refers their patient to another provider of care shouldprovide summary care record for each transition of care or referral. [facility] All[facility] Active Allergy Reactions Criticality Noted Date Comments Latex Rash High 06/22/2012 Medications Medication Sig Dispensed Refills Start Date End Date Status cetirizine (ZYRTEC) 10 MG tablet Take 1 Tablet (10 mg) by mouth daily. Active Multiple Vitamin (MULTIVITAMINS OR) Active escitalopram oxalate (LEXAPRO) 20 MG tablet 07/10/2020 Active Glucosamine-Chondroi t-Vit C-Mn (GLUCOSAMINE CHONDR 1500 COMPLX OR) 08/24/2019 Active [place]-3 Fatty Acids (FISH-EPA OR) 08/24/2019 Active spironolactone [...] Sex Assigned at Female 07/16/2021 10:37 PM TIP LENGTH CHECKER Gender Identity Female 07/16/2021 10:37 PM TIP LENGTH CHECKER Sexual Orientation Straight 07/16/2021 10 :37 PM TIP LENGTH CHECKER Last Filed Vital Signs Vital Sign Reading Time Taken Comments Blood Pressure 99/64 02/08/2019 10:03 AM CDT Pulse 61 01/06/2024 7:21 AM CDT Temperature 36.9 ??C (98.4 ??F) 09/25/2012 10:[address] Respiratory Rate 16 09/25/2012 10:04 AM TIP LENGTH CHECKER Oxygen Saturation 96% 09/25/2012 10:04 AM TIP LENGTH CHECKER Inhaled Oxygen Concentration - - Weight 68 kg (150 lb) 10/05/2012 8:21 AM TIP LENGTH CHECKER Height 170.2 cm (5' 7) 08/13/2012 8:22 AM TIP LENGTH CHECKER Body Mass Index 23.49 08/13/2012 8:22 AM TIP LENGTH CHECKER Plan of Treatment Health Maintenance Due Date Last Done Comments Hep C Screening (Preventive Services) 1981 Mammogram 1981 HIV Screening (Preventive Services) 1997 Adult Preventive Visit 1999 HepB (1) 2000 Cervical Cancer Screening Due 04/22/2012 04/21/2012 COVID-19 Vaccine ( season) 2024 12/11/2020, 11/20/2020 Influenza (#1) 2024 06/01/2020, 05/25, [...] on patient's age to complete this topic RSV Aged Out No longer eligi ble based on patient's age to complete this topic MCV4 Aged Out No longer eligi ble based on patient's age to complete this topic Pneumococcal Aged Out No longer eligi ble based on patient's age to complete this topic Care Teams Sifter And Miller Relationship Specialty Start Date End Date Marylin Caceres MD [address] [place] [address] PCP - General Family Practice 02/08/19
--- OUTSIDE RECORDS SUMMARY | 2024-06-04 16:10 | XMS_ITS | Encounter Summary ---
Author Organization [facility] Address [address] [place] [address] Care Team Providers Care Wire Coiler Machine Operator Name Role Phone Marylin Caceres MD Primary Care Provider [phone] Encounter Details Date Type Department Care Team (Late st Contact Info) Description 06/23/2012 Correspondence [facility] [address] [place] [phone] Ruben Morin DC CHIROPRACTIC PT LIABILITY PAW Social History Tobacco Use Types Packs/Day Years Used Date Smoking Tobacco: Never Alcohol Use Standard Drinks/Week Comments Not Asked 0 (1 standard drink = 0.6 oz pur e alcohol) Sex and Gender Information Value Date Recorded Sex Assigned at Female 07/16/2021 10:37 PM ASSOCIATE PROFESSOR OF GEOGRAPHY Gender Identity Female 07/16/2021 10:37 PM ASSOCIATE PROFESSOR OF GEOGRAPHY Sexual Orientation Straight 07/16/2021 10 :37 PM ASSOCIATE PROFESSOR OF GEOGRAPHY documented as of this encounter Progress Notes * Ruben Morin DC - 06/23/2012 12:00 AM CDT CIATE PROFESSOR OF GEOGRAPHY documented in this encounter Plan of Treatment Not on file documented as of this encounter Visit Diagnoses Not on filedocumented in this encounter Additional Health Concerns Infection Onset Date Last Indicated Resolved Time R/O COVID19 12/28/2020 12/28/2020 12/28/2020 6:24 PM CDT documented as of this encounter Care Teams Wire Coiler Machine Operator Relationship Specialty Start Date End Date Marylin Caceres MD [address] [place] [address] PCP - General Family Practice 02/08/19 documented as of this encounter
--- OUTSIDE RECORDS SUMMARY | 2024-06-04 16:10 | XMS_ITS | Continuity of Care Document ---
Author Organization [facility] Address [address] [address] [place] [address] Phone Care Team Providers Care Service Desk Associate Name Role Phone Karel Clemente MD Unavailable [...] Diagnoses Date Provider Providers Copied on Encounter [facility], [address] [address], [place], [place], [id number], [place] tel:[phone] [facility] No Information Bryn [place]. [address] [facility] [address], [place], [place], [id number] , [place]. tel:[phone] [facility], [address] [address], [place], [place], [id number], [place] tel:[phone] [facility] Epigastric abdominal painChest pain, atypicalGastritis without bleeding, unspecified chronicity, unspecified gastritis typeGastro-esophage al reflux disease with esophagitisDisease of stomach and duodenum, unspecified 6 [address] [place]. [address] [facility] [address], [place], [place], [id number] , [place]. tel:[phone] Family History Family Member Type Diagnosis Age At Onset Sister Problem (finding) Thyroid disorder Mother Problem (finding) Alive and well Son Problem (finding) Alive and well Sister Problem (finding) gallbladder disease Father Problem (finding) Cancer, brain Daughter Problem (finding) Alive and well Brother Problem (finding) Alive and well Payers Payer name Insurance type Covered constitution party ID Authorsuryaa umer(s) [employer] CI [id number] Social History Type Description Quantity Date Captured [...]
--- OUTSIDE RECORDS SUMMARY | 2024-06-04 16:10 | XMS_ITS | Clinical Summary ---
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 Other known or suspected fet al abnormality, not elsewhere classified, affecting management of mother, unspecified as to episode of care 02/17/2008 Encounters Date Type Department Care Team Description 03/09/2024 Lab Requisition [facility] [phone] Nidia Rios MD from Last 3 Months Social History Tobacco [...] for age 18-79 1999 Tetanus booster 2001 COVID-19 vaccine series (2023- season) 2024 05/23/2023, 05/03/2022, 06/21/2021, Additional history exists Influenza for age 9-49 04/24/2024 Pap test for age 21-65 03/09/2027 , 03/09/2024, 05/28/2017, Additional history exists Pneumococcal series for age 6-64 Aged Out No longer eligible based on patient's age to complete this topic Procedures Procedure Name Priority Date/Time Associated Diagnosis Comments LAB TRACKING EVENT Routine 03/09/2024 8: 00 AM CDT PRODUCTION ASSEMBLY OPERATOR THIN PREP PAP SCREEN IMAGED Routine 03/09/2024 8:00 AM CDT HPV HIGH RISK Routine 03/09/2024 8:00 AM CDT from Last 3 Months Results * LAB TRACKING EVENT (03/09/2024 8:00 AM CDT) Other (Other) Client Collect / Unknown 03/09/2024 8:00 AM CDT 03/09/2024 4:16 PM CDT Nidia Rios MD LAB BILL ONLY [facility] [address] [place] [address], * PRODUCTION ASSEMBLY OPERATOR THIN PREP PAP SCREEN IMAGED (03/09/2024 8:00 AM CDT) Case Report Gynecologic Cytology Report ? Case: [id number] ? Authorizing Provider: ??Nidia Rios MD ??Collected: ? 03/09/2024 0800 ? Ordering Location: ? [facility] ?Received: ?03/11/2024 1003 ? First Screen: ?Massimo Gant ? Specimen: ?PRODUCTION ASSEMBLY OPERATOR ThinPrep Vial Screening, Cervical/Vaginal ? 03/17/2024 12:25 PM CDT [facility] INTERPRETATION/ RESULT NEGATIVE FOR INTRAEPITHELIAL LESION OR MALIGNANCY (NIL) (none) 03/17/2024 12:25 PM CDT [facility] IMEN ADEQUACY Satisfactory for evaluation Endocervical component present 03/17/2024 12:25 PM CDT [facility] HPV REQUEST HPV and PAP 03/17/2024 12:25 PM CDT [facility] Date of LMP 03/17/2024 12:25 PM CDT [facility] Comment:Unknown Last Pap Date 05/28/2017 03/17/2024 12:25 PM CDT [facility] Last Pap Result NIL 12:25 PM CDT [facility] Abnormal Pap or Siloam Bx in last 5 years No 03/17/2024 12:25 PM CDT [facility] Menstrual Status Ablation 03/17/2024 12:25 PM CDT [facility] Siloam Bx Done Today No 03/17/2024 12:25 PM CDT [facility] Additional Information 03/17/2024 12:25 PM CDT [facility] Comment: Interpreted at [facility] - [address] [address] Automated Review Successful 03/17/2024 12:25 PM CDT [facility] Comment:Specimen processed s uccessfully by automated professional nurse device, ThinPrep Imaging System, [employer] ANCILLARY TESTING PRODUCTION ASSEMBLY OPERATOR HPV Ordered, Please see separate report 03/17/2024 12:25 PM CDT [facility] Note The pap test is a screening technique, not a diagnostic procedure. It is used primarily to screen for squamous cancers and precursor lesions. Published studies have shown that it is subject to both false negative and false positive results. The pap test should not be used as the sole means to diagnose or exclude pre-malignant and malignant lesions. 03/17/2024 12:25 PM CDT [facility] Other (Cervical/Vagina l) 03/09/2024 8:00 AM CDT 03/11/2024 10:03 AM CDT Nidia Rios MD PATHOLOGY/CYTOLO GY [facility] [address] [place] [address], * HPV HIGH RISK (03/09/2024 8:00 AM CDT) TYPE 16 Negative Negative 03/16/2024 6:23 AM CDT [facility] TYPE 18 Negative Negative 03/16/2024 6:23 AM CDT [facility] OTHER HIGH RISK TYPES Negative Negative 03/16/2024 6:23 AM CDT [facility] Other (Cervical/Vagina l) 03/09/2024 8:00 AM CDT 03/11/2024 10:03 AM CDT Narrative [facility] - 03/16/2024 6:23 AM CDT HPV types 16, 18, 31, 33, 35, 39, 45, 51, 52, 56, 58, 59, 66 and 68 DNA were undetectable or below the pre-set threshold. Methodology: Shankar Reyes 4800 HPV Test Nidia Rios MD MICROBIOLOGY [facility] [address] [place] [address], from Last 3 Months Care Teams Director Of Digital Platforms Relationship Specialty Start Date End Date Nidia Rios MD [address] [place] [address] PCP - General Family Practice 06/30/23
== END 2024-06-03 09:29 | disposition home or self-care (01) ==
LOC: NFLDREF 06-04 16:08
PROVIDERS: PCP Family Medicine; Referring Provider Family Medicine; Visit Provider Family Medicine
DX: E78.5 Hyperlipidemia, unspecified (principal)
CPT/HCPCS: 80061

== ENCOUNTER 2024-10-05 08:51 | Outpatient (CLI) | payer OTHER, SELFPAY | END 2024-10-05 08:52 | disposition home or self-care (01) | LOC: MRI 08:53 | PROVIDERS: PCP Family Medicine; Visit Provider Family Medicine | DX: Z12.39 Encounter for other screening for malignant neoplasm of breast (principal); Z15.09 Genetic susceptibility to other malignant neoplasm; Z15.01 Genetic susceptibility to malignant neoplasm of breast; Z15.89 Genetic susceptibility to other disease | CPT/HCPCS: 77049; A9575 ==

== ENCOUNTER 2025-02-11 21:00 | Emergency (ER) | payer OTHER, SELFPAY ==
--- OUTSIDE RECORDS SUMMARY | 2016-01-28 16:20 | XMS_ITS | Continuity of Care Document ---
Author Organization [facility] Address [address] [address] [place] [address] Phone Care Team Providers Care Plant Engineering Supervisor Name Role Phone Karel Clemente MD Unavailable Unavailable Allergies, Adverse Reactions, Alerts Substance Reaction Status Criticality latex HivesHives Active No Information Medications Medication Instructions Dosage Effective Dates (start - stop) Status Comments omeprazole 20 mg capsule,delayed release take 1 capsule by oral route 2 times every day before meals 20 MG - Active Twice daily for 8 weeks, then taper (once daily for 1 week, then every other day for 1 week.) Multiple Vitamin, Womens tablet - Active VITAMIN D3 (unknown strength) take 1 capsule by oral route every day Not Available - Active Procedures Procedure Date Ugi Endo; W/bx 1/mx Level Iv-surg Path Gross/micro 16 Advance Directives Directive Yes / No Effective Date File Name No Information Encounters Encounter Description Practice Location Reason(s) For Visit Diagnoses Date Provider Providers Copied on Encounter [facility], [address] [address], [place], [place], [id number], [place] tel:[phone] [facility] No Information Bryn Vinson. [address] [facility], [facility] [address], [place], [place], [id number] , [place]. tel:[phone] [facility], [address] [address], [place], [place], [id number], [place] tel:[phone] [facility] Epigastric abdominal painChest pain, atypicalGastritis without bleeding, unspecified chronicity, unspecified gastritis typeGastro-esophage al reflux disease with esophagitisDisease of stomach and duodenum, unspecified [address] [facility], [facility] [address], [place], [place], [address] , [place]. tel:[phone] Family History Family Member Type Diagnosis Age At Onset Sister Problem (finding) Thyroid disorder Mother Problem (finding) Alive and well Son Problem (finding) Alive and well Sister Problem (finding) gallbladder disease Father Problem (finding) Cancer, brain Daughter Problem (finding) Alive and well Brother Problem (finding) Alive and well Payers Payer name Insurance type Covered alliance party ID Authorsuryaa umer(s) [employer] CI [id number] Social History Type Description Quantity Date Captured Comments Sex Female Smoking Status No Information Chief Complaint And Reason For Visit No Information Reason For Referral Reason For Referral No Information History Of Present Illness Encounter Date Complaint History Of Prese nt Illness No Information Functional Status Date Functional Assessmen t No Information Instructions Date Instruction Additional Infor sae Gastroesophageal Reflux Disease Related to Chest pain, atypical Assessments Type Assessment Date No Information Patient Care Teams Name Effective Dates (start - stop) Status Members No Information
--- OUTSIDE RECORDS SUMMARY | 2016-01-28 16:20 | XMS_ITS | Continuity of Care Document ---
Author Organization [facility] Address [address] [address] [place] [address] Phone Care Team Providers Care Color Maker Name Role Phone Karel Clemente MD Unavailable [...] Diagnoses Date Provider Providers Copied on Encounter [facility], [address] [address], [place], [place], [address], [place] tel:[phone] [facility] No Information Bryn Vinson. [address] [facility], [facility] [address], [place], [place], [id number] , [place]. tel:[phone] [facility], [address] [address], [place], [place], [address], [place] tel:[phone] [facility] Epigastric abdominal painChest pain, atypicalGastritis without bleeding, unspecified chronicity, unspecified gastritis typeGastro-esophage al reflux disease with esophagitisDisease of stomach and duodenum, unspecified 6 Bryn Vinson. [address] [facility], [facility] [address], [place], [place], [id number] , [place]. tel:[phone] Family History Family Member Type Diagnosis Age At Onset Sister Problem (finding) Thyroid disorder Mother Problem (finding) Alive and well Son Problem (finding) Alive and well Sister Problem (finding) gallbladder disease Father Problem (finding) Cancer, brain Daughter Problem (finding) Alive and well Brother Problem (finding) Alive and well Payers Payer name Insurance type Covered green party ID Authorsuryaa umer(s) [employer] CI [id number] Social History Type Description Quantity Date Captured [...]
--- OUTSIDE RECORDS SUMMARY | 2025-02-11 21:02 | XMS_ITS | Clinical Summary ---
Author Organization [employer] [facility] Address [address] [place] [address] Care Team Providers Care Double End Tenon Operator Name Role Phone Nidia Rios MD Primary Care Provider + Allergies Active Allergy Reactions Criticality Noted Date Comments Latex Hives 03/27/2015 Medications PNV WITH CA,NO.72/IRON/FA ( VITAMINS LOW IRON ORAL) Take by mouth. Active escitalopram oxalate (LEXAPRO) 20 mg tablet 07/10/2020 Active spironolactone (ALDACTONE) 50 mg tablet Take 50 [...] drink = 0.6 oz pur e alcohol) Comments Unknown Sex and Gender Information Value Date Recorded Sex Assigned at Not on file Legal Sex Female 7:21 AM PORTER MARINA Gender Identity Not on file Sexual Orientation Not on file Obstetrics History Last Filed Vital Signs Vital Sign Reading Time Taken Comments Blood Pressure 107/72 03/31/2022 3:53 PM CDT Pulse 86 03/31/2022 3:53 PM CDT Temperature 36.9 C (98.5 F) 03/31/2022 3:53 PM CDT Respiratory Rate 14 03/31/2022 3:53 PM CDT [...] Hepatitis C screening for age 18-79 1999 Hepatitis B series for 19+ (1 of 3 - 19+ 3-dose series) 2000 Tetanus booster 2001 COVID-19 vaccine series (2023- season) 2024 05/23/2023, 05/03/2022, 06/21/2021, Additional history exists Influenza Vaccine (Season Ended) 2025 Pap test for age 21-65 03/09/2027 , 03/09/2024, 05/28/2017, Additional history exists Pneumococcal series for age 6-49 Aged Out No longer eligible based on patient's age to complete this topic Procedures Procedure Name Priority Date/Time Associated Diagnosis Comments HPV HIGH RISK Routine 03/09/2024 8:00 AM CDT from Last 3 Months or Most Recently Relevant to Health Maintenance Results * HPV HIGH RISK (03/09/2024 8:00 AM CDT) TYPE 16 Negative Negative 03/16/2024 6:23 AM CDT [facility] TYPE 18 Negative Negative 03/16/2024 6:23 AM CDT [facility] OTHER HIGH RISK TYPES Negative Negative 03/16/2024 6:23 AM CDT [facility] Other (Cervical/Vagina l) 03/09/2024 8:00 AM CDT 03/11/2024 10:03 AM CDT Narrative [facility] - 03/16/2024 6:23 AM CDT HPV types 16, 18, 31, 33, 35, 39, 45, 51, 52, 56, 58, 59, 66 and 68 DNA were undetectable or below the pre-set threshold. Methodology: Shankar Reyes 4800 HPV Test us Nidia Rios MD MICROBIOLOGY Final Re sult [facility] [address] [place] [address], from Last 3 Months or Most Recently Relevant to Health Maintenance Insurance [employer] [address] [place] [id number] [place] [id number] Care Teams Double End Tenon Operator Relationship Specialty Start Date End Date Nidia Rios MD [address] [place] [address] PCP - General Family Practice 06/30/23
--- OUTSIDE RECORDS SUMMARY | 2025-02-11 21:02 | XMS_ITS | Patient Health Record ---
Author Organization [facility] Address [address] [place] [address] Care Team Providers Care Security Representative Name Role Phone Julia Galindo Primary Care Provider Unavailabl e Reason For Referral No Information Medications Medication SIG (Take, Route, Frequency, Duration) Notes Start Date End Date Status Gabapentin 100 MG take 1 capsule (100 mg) by oral route at bedtime Oral 3 Active TheraLith XR 3.75-45-45-49.5 mg Oral *please review for potential update for e-prescription and drug interaction check* Active Multi-Vitamin Oral Active Problems Problem Type SNOMED Code ICD Code Onset Dates Problem Status W/U Status Risk Notes Problem Abnormal uterine bleeding (N93.9) 02/10/2014 Active confirmed Plan Of Treatment No Information Insurance Providers Payer Name Payer Address Payer Phone Subscriber Number Group Number Insured Name Patient Relationship to Insured Coverage Start Date Coverage End Date [facility] [address] [place], [place] [id number] Carin Farmer Self - patient is the insured [facility] [address] [address] [place] [address] [id number] Carin Farmer Self - patient is the insured 9 Medical (General) History Surgical History Surgery Date(Month/Year) kidney lithotripsie, Date of Procedure: 2006; 2008-10-25 Ovarian cystectomy, Date of Procedure: ; 2008-10-25 Pec Neph Tube Placed: Right, during , Date of Procedure: 2005; 2008-10-25 Suction D&C: Retained placenta, Date of Procedure: 10/2008; 2008-11-08 D&C: AUB, Date of Procedure: 02/23/2014; 2014-03-06
--- OUTSIDE RECORDS SUMMARY | 2025-02-11 21:02 | XMS_ITS | Clinical Summary ---
Author Organization [facility] Address [address] [place] [address] Care Team Providers Care Terminal Block Assembler Name Role Phone Marylin Caceres MD Primary Care Provider [phone] Source Comments You are receiving this document as you are listed as the primary care provider,follow-up provider, or the patient has been referred to you for consultation.This is in compliance with the Medicare and[facility] Centercaid EHR Incentive Program,which states Providers who transition their patient to another setting of careor provider of care or refers their patient to another provider of care shouldprovide summary care record for each transition of care or referral. [facility] Allerg[facility] Active Allergy Reactions Criticality Noted Date Comments Latex Rash High 06/22/2012 Medications cetirizine (ZYRTEC) 10 MG tablet Take 1 Tablet (10 mg) by mouth daily. Active Multiple Vitamin (MULTIVITAMINS OR) Active escitalopram oxalate (LEXAPRO) 20 MG tablet 0 Active Glucosamine-Cho ndroit-Vit C-Mn (GLUCOSAMINE CHONDR 1500 COMPLX OR) 0 Active [place]-3 Fatty Acids (FISH-EPA OR) 0 Active spironolactone (ALDACTONE) 50 MG tablet Take 1 Tablet (50 mg) by mouth daily. 2 Active tretinoin (RETIN-A) 0.025 % cream Apply topically daily at bedtime. 1 Active sodium fluoride dental (PREVIDENT) 1.1 % gel Apply thin ribbon to teeth with toothbrush or mouthpiece tray for at least 1 minute. Spit out gel and rinse mouth thoroughly. 60 g 6 3 Active Active Problems Problem Noted Date Diagnosed Date Depression with anxiety 08/24/2019 Sciatica 08/11/2012 Lumbago 06/29/2012 Kidney stones, calcium oxalate 05/24/2006 Social History Tobacco Use Types Packs/Day Years Used Date Smoking Tobacco: Never Smokeless Tobacco: Never Alcohol Use Standard Drinks/Week Comments Yes 1 (1 standard drink = 0.6 oz pur e alcohol) Comments No Sex and Gender Information Value Date Recorded Sex Assigned at Female 07/16/2021 10:37 PM VIDEO INTERN Legal Sex Female 6:50 AM CDT Gender Identity Female 07/16/2021 10:37 PM VIDEO INTERN Sexual Orientation Straight 07/16/2021 10 :37 PM VIDEO INTERN Last Filed Vital Signs Vital Sign Reading Time Taken Comments Blood Pressure 99/64 02/08/2019 10:03 AM CDT Pulse 61 01/06/2024 7:21 AM CDT Temperature 36.9 C (98.4 F) 09/25/2012 10:04 AM VIDEO INTERN Respiratory Rate 16 09/25/2012 10:04 AM VIDEO INTERN Oxygen Saturation 96% 09/25/2012 10:04 AM VIDEO INTERN Inhaled Oxygen Concentration - - Weight 68 kg (150 lb) 10/05/2012 8:21 AM VIDEO INTERN Height 170.2 cm (5' 7) 08/13/2012 8:22 AM VIDEO INTERN Body Mass Index 23.49 08/13/2012 8:22 AM VIDEO INTERN Plan of Treatment Upcoming Encounters Date Type Department Care Team (Late st Contact Info) Description 05/24/2025 11:00 AM CDT Appointment [facility] [address] [place] [phone] [facility] [address] [place] [address] Health Maintenance Due Date Last Done Comments Hep C Screening (Preventive Services) 1981 Mammogram 1981 HIV Screening (Preventive Services) 1997 Adult Preventive Visit 1999 HepB Vaccine (1) 2000 Cervical Cancer Screening Due 04/22/2012 04/21/2012 COVID-19 Vaccine (3 - 2023- season) 2024 12/11/2020, 11/20/2020 DTaP/Tdap/Td Vaccine (3 - Tdap) 03/16/2025 03/16/2015, 10/24/2009 Influenza Vaccine (Season Ended) 2025 06/01/2020, 06/13/2019, 05/24/2019, Additional history exists Zoster/Shingles Vaccine (1 of 2) 2031 HepA Vaccine Aged Out 11/18/2010, 10/24/2009 No lo nger eligible based on patient's age to complete this topic HPV Vaccine Aged Out No longer eligi ble based on patient's age to complete this topic Hib Vaccine Aged Out No longer eligi ble based on patient's age to complete this topic IPV (Polio) Vaccine Aged Out No longe r eligible based on patient's age to complete this topic MCV4 Vaccine Aged Out No longer eligi ble based on patient's age to complete this topic Meningococcal B Vaccine Aged Out No l onger eligible based on patient's age to complete this topic Pneumococcal Vaccine Aged Out No long er eligible based on patient's age to complete this topic Insurance [address] [place] [id number] [place] [id number] [place] [id number] [employer] Care Teams Terminal Block Assembler Relationship Specialty Start Date End Date Marylin Caceres MD [address] [place] [address] PCP - General Family Practice 02/08/19
--- OUTSIDE RECORDS SUMMARY | 2025-02-11 21:02 | XMS_ITS | Encounter Summary ---
Author Organization [facility] Address [address] [place] [address] Care Team Providers Care Chief Merchandising Officer Name Role Phone Marylin Caceres MD Primary Care Provider [phone] Encounter Details Date Type Department Care Team (Late Contact Info) Description 06/23/2012 Correspondence [facility] [address] [place] [phone] Ruben Morin DC CHIROPRACTIC PT LIABILITY PAW Social History Tobacco Use Types Packs/Day Years Used Date Smoking Tobacco: Never Alcohol Use Standard Drinks/Week Comments Not Asked 0 (1 standard drink = 0.6 oz pur e alcohol) Comments No Sex and Gender Information Value Date Recorded Sex Assigned at Female 07/16/2021 10:37 PM WEALTH MANAGEMENT CONSULTANT Legal Sex Female 6:50 AM CDT Gender Identity Female 07/16/2021 10:37 PM WEALTH MANAGEMENT CONSULTANT Sexual Orientation Straight 07/16/2021 10 :37 PM WEALTH MANAGEMENT CONSULTANT documented as of this encounter Progress Notes * Ruben Morin DC - 06/23/2012 12:00 AM CDT TH MANAGEMENT CONSULTANT documented in this encounter Plan of Treatment Upcoming Encounters Date Type Department Care Team (Late Contact Info) Description 05/24/2025 11:00 AM CDT Appointment [facility] Dental [address] [address] Marilee Akers, [facility] [address] [place] [address] documented as of this encounter Visit Diagnoses Not on filedocumented in this encounter Additional Health Concerns Infection Onset Date Last Indicated Resolved Time R/O COVID19 12/28/2020 12/28/2020 12/28/2020 6:2 4 PM CDT documented as of this encounter Care Teams Chief Merchandising Officer Relationship Specialty Start Date End Date Marylin Caceres MD [address] [place] [address] PCP - General Family Practice 02/08/19 documented as of this encounter
[2025-02-11 21:04] VITALS: BP 116/72; PULSE 89; RESP 16; TEMP 36.5; O2SAT 96; BMI 27.2
[2025-02-11 21:24] LABS: Appearance Urine Clear (Clear); Bilirubin Urine Negative (Negative); Blood Urine Negative (Negative); Color Urine Light yellow (Yellow); Glucose Urine Negative (Negative); Ketones Urine Negative (Negative); Leukocyte Esterase Urine Negative (Negative); Nitrite Urine Negative (Negative); Protein Urine Negative (Negative); Urobilinogen Urine 0.2 (0.2-1.0)
--- NOTE | 2025-02-11 21:28 | ED.GENADULT ---
HPI - General Adult General Time Seen by Provider: 21:28 Date Seen: 02/11/25 Chief complaint: Flank Pain Stated complaint: lower back pain Time Seen by Provider: 02/11/25 21:17 Source: patient and RN notes reviewed Mode of arrival: ambulatory Limitations: no limitations History of Present Illness HPI narrative: This 44-year-old female is ambulatory into the ED with left flank and back pain. She has a history of kidney stones. Symptoms started on Thursday, pain is not resolving, she does not feel like the stone is moving. She used ondansetron that she had at home on Thursday but has not had to use it sense. No nausea now, no vomiting. She does not have abdominal pain. She has noted no dysuria but feels like she is urinating less than what she would expect for her oral intake. She has had a history of kidney stones, had a nephrostomy tube during due to it, has had lithotripsy on the left side before. She has had no fevers but notes she did have chills on Thursday when this started. Her has had a vasectomy, she has had an endometrial ablation. Related Data Home Medications ?Medication ?Instructions ?Recorded ?Confirmed cetirizine 10 mg tablet 10 mg PO .HS 02/27/22 02/11/25 glucosamine HCl 1,500 mg tablet 1,500 mg PO QDAY 02/27/22 02/11/25 omega 4-ybf-hpo-fish oil 1,000 mg 1 cap PO QDAY 02/27/22 02/11/25 (120 mg-180 mg) capsule (Fish Oil) spironolactone 50 mg tablet 50 mg PO QAM 02/27/22 02/11/25 multivitamin 1 tab PO QDAY 06/04/22 03/09/24 triamcinolone acetonide 0.025 % 1 applic topical .Bedtime 06/04/22 02/11/25 topical cream gabapentin 300 mg capsule 300 mg PO QDAY PRN 03/09/24 02/11/25 Previous Rx's ?Medication ?Instructions ?Recorded escitalopram oxalate 20 mg tablet 20 mg PO QDAY #90 tabs 03/09/24 rosuvastatin 5 mg tablet 5 mg PO QDAY #90 tabs 02/08/25 Allergies Allergy/AdvReac Type Severity Reaction Status Date / Time latex Allergy Intermediate rash, hives Verified 06/21/25 21:04 Review of Systems Status of ROS: Reports: 6 or more systems reviewed and unremarkable except as noted in History and below PFSH PFS Medical History Menorrhagia with regular cycle (~04/04/22) ?N92.0 - Excessive and frequent menstruation with regular cycle (ICD-10) Recurrent nephrolithiasis ?N20.0 - Calculus of kidney (ICD-10) snf current use of diuretic ?Z79.899 - Other retirement (current) drug therapy (ICD-10) Herpes zoster oticus (~2016) ?B02.21 - Postherpetic geniculate ganglionitis (ICD-10) Anxiety and depression ?F41.9 - Anxiety disorder, unspecified (ICD-10) ?F32.A - Depression, unspecified (ICD-10) Acne ?L70.9 - Acne, unspecified (ICD-10) Surgical History S/P endometrial ablation (06/10/22) ?Z98.890 - Other specified postprocedural states (ICD-10) History of ovarian cystectomy (2004) ?Z98.890 - Other specified postprocedural states (ICD-10) ?Z87.42 - Personal history of other diseases of the female genital tract (ICD-10) History of nephrostomy (2005) History of lithotripsy (2006) ?Z98.890 - Other specified postprocedural states (ICD-10) History of dilation and curettage (2013) ?Z98.890 - Other specified postprocedural states (ICD-10) Family History Father Brain cancer, Onset Age: 32 Sister Anxiety Daughter Depression Grandfather Heart disease Aunt Breast cancer, Onset Age: 40 Social History Narrative: , 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, 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, lives in [place] exercises 3 times per week- walks non-smoker rarely consumes alcohol What is your current living situation?: I presently have a place to live Problems where you live: no known problems In the past 12 months, utilities in danger of being shut off: no In past 12 months, lack of transportation kept you from medical appts, meetings, work, or getting things needed for daily living: no In the past 12 mos, have been you worried that your food would run out before you had money to buy more?: never true In the past 12 mos, the food you bought just didn't last and you didn't have money to buy more?: never true Smoking Status: Never smoker How often do you have a drink containing alcohol: monthly or less How often do you have six or more drinks on one occasion: Never AUDIT-C Alcohol total score: 1 Non-prescribed substance use: denies use Caffeine: Yes How often does anyone, including family, friends and others, physically hurt you: never How often does anyone, including family, friends and others, insult or talk down to you: sometimes How often does anyone, including family, friends and others, threaten you with harm: never How often does anyone, including family, friends and others, scream or curse at you: rarely Health Related Social Needs: Other personal risk factors, not elsewhere classified (Z91.89) Exam Const: Vital Signs, click to edit/add: Vital Signs - 24 hr 02/11/25 21:04 02/11/25 21:46 Temperature 97.7 F 97.7 F Pulse Rate [Pulse Oximeter] 89 Respiratory Rate 16 Blood Pressure [Le ft Upper Arm] 116/72 Pulse Oximetry 96 Oxygen Delivery Me thod Room Air Carin is a very pleasant 44-year-old female sitting in the chair in exam room 4. She is alert, interactive, no apparent distress. Sclera clear, symmetric facial function, able to speak in complete sentences. Neck supple, lungs clear, good air entry, wheeze or crackles. No significant CVA tenderness, abdomen is soft, nontender, nondistended, no organomegaly. CV regular rate and rhythm, normal S1-S2, no S3-S4. Documenting provider has reviewed patient's vital signs: yes Course Course ED Course: This patient is presenting with symptoms consistent with renal colic. Will do CT imaging noncontrast to assess this further, assess stone size. Will start with Toradol for pain management with some IV fluids. Will get basic metabolic panel and CBC. The abdomen pelvis will certainly help us elucidate if we need to worry about other intra-abdominal pathology. Reevaluation(s) Time of Reevaluation #1: 22:47 Reevaluation #1: Have reviewed with Carin her CT findings, she does have stones within the kidneys but they are not obstructing. The did see small noncalcified pulmonary nodules incidentally, did give her a copy of her CT to talk to her primary care provider and decide if she would need any further imaging. She does also have back issues. We did discuss that sometimes patients can get pain from kidney stones within the kidney but is not typical. She wonders if 1 maybe just started to move but is not obstructing. Certainly that could be a possibility. We discussed sending her with some Toradol for some pain management, may help back issues as well. She is in agreement. Reviewed signs and symptoms for return. Vital Signs Vital signs: Initial Vital Signs Temperature 97.7 F 02/11/25 21:04 Temperature Source Temporal Artery Scan 02/11/25 21:04 Pulse Rate 89 02/11/25 21:04 Respiratory Rate 16 02/11/25 21:04 Blood Pressure 116/72 02/11/25 21:04 Blood Pressure Mean 86 02/11/25 21:04 Blood Pressure Position Sitting 02/11/25 21:04 Pulse Oximetry 96 02/11/25 21:04 Oxygen Delivery Method Room Air 02/11/25 21:04 Vital Signs Temperature 97.7 F 02/11/25 21:04 Pulse Rate 89 02/11/25 21:04 Respiratory Rate 16 02/11/25 21:04 Blood Pressure 116/72 02/11/25 21:04 Pulse Oximetry 96 02/11/25 21:04 Oxygen Delivery Method Room Air 02/11/25 21:04 Temperature 97.7 F 02/11/25 21:46 Pulse Rate 89 02/11/25 21:04 Respiratory Rate 16 02/11/25 21:04 Blood Pressure 116/72 02/11/25 21:04 Pulse Oximetry 96 02/11/25 21:04 Oxygen Delivery Method Room Air 02/11/25 21:04 Medications Administered Medications: Generic Name Dose Route Start Last Admin Trade Name Freq PRN Reason Stop Dose Admin Sodium Chloride 1,000 mls @ 500 mls/hr 02/11/25 21:34 02/11/25 21:46 0.9 % Sodium Chloride 1000 Ml IV 02/11/25 23:33 500 mls/hr .Q2H LYNDON Administration Discontinued Medications Generic Name Dose Route Start Last Admin Trade Name Freq PRN Reason Stop Dose Admin Ketorolac Tromethamine 15 mg 02/11/25 21:33 02/11/25 21:46 Ketorolac 15 Mg/Ml Inj IVP 02/11/25 21:34 15 mg ONCE ONE Administration Medical Decision Making Lab Data Lab results reviewed: Yes I reviewed the patient's lab results Labs: Lab Results 02/11/25 02/11/25 Range/Units 21:17 21:33 WBC 7.94 (4.50-11.00) K/uL RBC 4.56 (4.00-5.20) m/uL Hgb 13.2 (12.0-16.0) gm/dL Hct 39.6 (33.0-51.0) % MCV 87 (80-100) fL MCH 29 (26-34) pg MCHC 33 (32-36) gm/dL RDW Coeff of Ritu 12.6 (11.5-15.5) % Plt Count 259 (140-440) K/uL Neut % (Auto) 60.2 (42.0-72.0) % Lymph % (Auto) 28.3 (20-44) % Amador % (Auto) 7.9 (0.0-11.0) % Eos % (Auto) 2.0 (0.0-7.0) % Baso % (Auto) 0.5 (0.0-3.0) % Neut # (Auto) 4.77 (1.7-7.0) K/uL Lymph # (Auto) 2.25 (0.90-2.90) K/uL Amador # (Auto) 0.60 (0.00-0.90) K/UL Eos # (Auto) 0.16 (0.00-0.50) K/uL Baso # (Auto) 0.04 (0.00-0.30) K/uL Abs Immat Gran (auto) 0.09 (0.00-0.30) K/uL Imm/Tot Granulo (auto) 1.1 % Sodium 138 (135-149) mmol/L Potassium 3.7 (3.6-5.1) mmol/L Chloride 102 (96-114) mmol/L Carbon Dioxide 28 (20-32) mmol/L Anion Gap 8 (7-15) mEq/L BUN 11 (5-24) mg/dL Creatinine 0.7 (0.5-1.5) mg/dL Estimated Creat Clear 100.77 Estimated GFR 110 ml/min Glucose 91 (60-115) mg/dL Calcium 9.6 (8.4-10.6) mg/dL Urine Color Light yellow (Yellow) Urine Appearance Clear (Clear) Urine pH 7.0 (5.0-8.5) Ur Specific [place] 1.010 (1.000-1.030) Urine Protein Negative (Negative) Urine Glucose (UA) Negative (Negative) Urine Ketones Negative (Negative) Urine Blood Negative (Negative) Urine Nitrite Negative (Negative) Urine Bilirubin Negative (Negative) Urine Urobilinogen 0.2 (0.2-1.0) Ur Leukocyte Esterase Negative (Negative) Urine RBC 0-2 (0-2) Urine WBC 0-2 (0-5) Ur Squamous Epith Cells None (None-Few) Urine Bacteria None (None) Imaging Data CT scan - abdomen: Attestation: I have reviewed the pertinent imaging results. Radiologist's impression: Patient: CARIN HOLLIS Facility:?[facility] Patient ID:?[id number] Site Patient ID:?[id number]. Site :?[id number] Study:?CT-Abdomen/Pelvis -02/11/2025 9:48:53 PM Ordering Physician:?Lamin Granados Final Report: INDICATION: Left flank pain, history of kidney stones. TECHNIQUE: CT abdomen and pelvis without contrast. COMPARISON: None. FINDINGS: Lower chest: 4 mm noncalcified middle lobe lingular nodule (3/14) and 3 mm noncalcified right lower lobe nodule (3/10). Liver: Unremarkable in size and attenuation. No suspicious masses. Gallbladder and bile ducts: Cholelithiasis, but no gallbladder inflammatory changes. No biliary dilatation. Pancreas: Unremarkable. No mass or inflammation. Spleen: Normal in size. No masses. Adrenal glands: Normal in size. No nodules. Kidneys: Normal in size. Left renal cyst. Multiple small bilateral nonobstructive renal calcified stones. No suspicious masses, obstructive stones, or hydronephrosis. GI tract: Unremarkable. Normal in caliber. No sign of mass or inflammation. Calcifications within the appendix, but no secondary signs of inflammation (). Vasculature: Abdominal aorta is normal in caliber. Lymph nodes: No lymphadenopathy. Peritoneum/Abdominal Wall: Unremarkable. No sign of mass or infiltration. No free air or significant free fluid. Pelvis: Bladder is unremarkable. Reproductive organs are unremarkable. Bones: Unremarkable for age. IMPRESSION: No acute findings to explain the patient`s symptoms. Small bilateral nonobstructive renal stones, but no obstructive stones or hydronephrosis Please note that all CT scans at this facility use dose modulation, iterative reconstruction, and/or weight-based dosing when appropriate to reduce radiation dose to as low as reasonably achievable. Dictated by Marcin Bazan MD @ 02/11/2025 10:00:12 PM ----- ADDENDUM ----- Additional impression point: Small noncalcified pulmonary nodules that do not require follow-up unless the patient is considered high risk for the development of lung cancer. If the patient is high risk, follow-up chest CT in 12 months could be considered to ensure stability. Dictated by Marcin Bazan MD @ Feb 11 2025 10:00PM (Electronic Signature) Discharge Plan Discharge Clinical Impression: Acute left flank pain, Bilateral nephrolithiasis Patient Disposition: Home, Self-Care Condition: Stable Instructions: Kidney Stones (ED), Flank Pain (ED) Additional Instructions: Can use the Toradol as prescribed from [facility], 1 tablet every 6 hours as needed, 20 prescribed. Can also use Tylenol 1000 mg 3 times a day baseline for pain. Continue to monitor symptoms. If you are worsening, develops fever, have vomiting with this or other new concerns, please seek re-evaluation. Consideration for alternate diagnoses such is musculoskeletal back pain should be considered. Do recommend follow-up with your primary care provider if ongoing symptoms but not worsening. Do need to review your CT report with the noncalcified pulmonary nodule seen incidentally on the CT, work with her primary care provider to see if you need any follow-up imaging. Activity Level: Activity as Tolerated Prescriptions: No Action triamcinolone acetonide 0.025 % cream 1 applic topical .Bedtime Rx Instructions: APPLY SPARINGLY TO AFFECTED AREA multivitamin Tablet 1 tab PO QDAY gabapentin 300 mg capsule 300 mg PO QDAY PRN escitalopram oxalate 20 mg tablet 20 mg PO QDAY Qty: 90 3RF cetirizine 10 mg tablet 10 mg PO .HS omega 7-tnl-van-fish oil [Fish Oil] 1,000 mg (120 mg-180 mg) capsule 1 cap PO QDAY glucosamine HCl 1,500 mg tablet 1,500 mg PO QDAY Rx Instructions: administer with a meal spironolactone 50 mg tablet 50 mg PO QAM rosuvastatin 5 mg tablet 5 mg PO QDAY Qty: 90 0RF Follow Up/Referrals: Nidia Rios MD [Primary Care Provider, Family Practice] Stand Alone Forms: [facility] Info Instructions
--- NOTE | 2025-02-11 21:33 | CRLHL7_ITS ---
For Patients: As a result of the Century Cures Act, medical imaging exams and procedure reports are released immediately into your electronic medical record. You may view this report before your referring provider. If you have questions, please contact your health care provider. INDICATION: Left flank pain, history of kidney stones. TECHNIQUE: CT abdomen and pelvis without contrast. COMPARISON: None. FINDINGS: Lower chest: 4 mm noncalcified middle lobe lingular nodule (3/14) and 3 mm noncalcified right lower lobe nodule (3/10). Liver: Unremarkable in size and attenuation. No suspicious masses. Gallbladder and bile ducts: Cholelithiasis, but no gallbladder inflammatory changes. No biliary dilatation. Pancreas: Unremarkable. No mass or inflammation. Spleen: Normal in size. No masses. Adrenal glands: Normal in size. No nodules. Kidneys: Normal in size. Left renal cyst. Multiple small bilateral nonobstructive renal calcified stones. No suspicious masses, obstructive stones, or hydronephrosis. GI tract: Unremarkable. Normal in caliber. No sign of mass or inflammation. Calcifications within the appendix, but no secondary signs of inflammation (90). Vasculature: Abdominal aorta is normal in caliber. Lymph nodes: No lymphadenopathy. Peritoneum/Abdominal Wall: Unremarkable. No sign of mass or infiltration. No free air or significant free fluid. Pelvis: Bladder is unremarkable. Reproductive organs are unremarkable. Bones: Unremarkable for age. IMPRESSION: No acute findings to explain the patient`s symptoms. Small bilateral nonobstructive renal stones, but no obstructive stones or hydronephrosis Please note that all CT scans at this facility use dose modulation, iterative reconstruction, and/or weight-based dosing when appropriate to reduce radiation dose to as low as reasonably achievable. Dictated by Marcin Bazan MD @ 02/11/2025 10:00:12 PM (Electronically Signed)
[2025-02-11 21:46] VITALS: TEMP 36.5
[2025-02-11] MEDS: 0.9 % SODIUM CHLORIDE 1000 ml 1,000 ML 500 ML IV (21:46)
[2025-02-11] MEDS: KETOROLAC 15 MG/ML inj IVP (21:46)
[2025-02-11 21:55] LABS: RBC Urine 0-2 (0-2); WBC Urine 0-2 (0-5)
[2025-02-11 22:08] LABS: Chloride* 102 mmol/L (96-114); Sodium* 138 mmol/L (135-149)
[2025-02-11 22:09] LABS: Potassium* 3.7 mmol/L (3.6-5.1)
[2025-02-11 22:11] LABS: Blood Urea Nitrogen* 11 mg/dL (5-24); Creatinine* 0.7 mg/dL (0.5-1.5); Est. Creatinine Clearance* 100.77; Estimated Glomerular Filt Rate 110 ml/min
[2025-02-11 22:12] LABS: Anion Gap 8 mEq/L (7-15); Calcium* 9.6 mg/dL (8.4-10.6); Carbon Dioxide* 28 mmol/L (20-32); Glucose* 91 mg/dL (60-115)
[2025-02-11 22:22] LABS: Basophils Absolute Auto 0.04 K/uL (0.00-0.30); Basophils Percent Auto 0.5 % (0.0-3.0); Eosinophils Absolute Auto 0.16 K/uL (0.00-0.50); Hematocrit 39.6 % (33.0-51.0); Hemoglobin* 13.2 gm/dL (12.0-16.0); Immature Granulocytes Abs Auto 0.09 K/uL (0.00-0.30); Immature Granulocytes Pct Auto 1.1 %; Lymphocytes Absolute Auto 2.25 K/uL (0.90-2.90); Lymphocytes Percent Auto 28.3 % (20-44); Mean Corpuscular HGB Conc 33 gm/dL (32-36); Mean Corpuscular Hemoglobin 29 pg (26-34); Mean Corpuscular Volume 87 fL (80-100); Monocytes Percent Auto 7.9 % (0.0-11.0); Neutrophils Absolute Auto 4.77 K/uL (1.7-7.0); Neutrophils Percent Auto 60.2 % (42.0-72.0); Platelet Count* 259 K/uL (140-440); RDW Coefficient of Variation % 12.6 % (11.5-15.5); Red Blood Count 4.56 m/uL (4.00-5.20); White Blood Count* 7.94 K/uL (4.50-11.00)
[2025-02-11 22:26] LABS: Slide Review Reflex No
== END 2025-02-11 23:01 | disposition home or self-care (01) ==
PROVIDERS: Emergency Provider Family Medicine; PCP Family Medicine
DX: N20.0 Calculus of kidney (principal)
CPT/HCPCS: 36415; 74176; 80048; 81001; 85025; 96374; 99284; J1885; J7030

== ENCOUNTER 2025-03-29 13:52 | Outpatient (CLI) | payer OTHER, SELFPAY | END 2025-03-29 13:53 | disposition home or self-care (01) | LOC: NFLDREF 04-03 14:48 | PROVIDERS: PCP Family Medicine; Referring Provider Family Medicine; Visit Provider Family Medicine | DX: Z12.31 Encounter for screening mammogram for malignant neoplasm of breast (principal); E78.5 Hyperlipidemia, unspecified; R53.83 Other fatigue; E66.3 Overweight | CPT/HCPCS: 77063; 77067; 80053; 80061 ==

== ENCOUNTER 2025-04-13 07:46 | Emergency (ER) | payer OTHER, SELFPAY ==
[2025-04-13] VITALS (15 sets, daily range): BP systolic 128–145; BP diastolic 75–93; PULSE 55–71; RESP 18; TEMP 36.8; O2SAT 98–100; BMI 27.1
--- OUTSIDE RECORDS SUMMARY | 2025-04-13 07:49 | XMS_ITS | Patient Health Record ---
Author Organization [facility] Address [address] [place] [address] Care Team Providers Care Auto [employer] Professional Name Role Phone Julia Galindo Primary Care [...] Insured Coverage Start Date [facility]age End Date [facility] [address] [place], [place] [id number] Carin Farmer Self - patient is the insured [facility] [address] [address] [place] [address] [id number] Carin Farmer Self - patient is the [...]
--- OUTSIDE RECORDS SUMMARY | 2025-04-13 07:49 | XMS_ITS | Encounter Summary ---
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 PAW Social History Tobacco Use Types Packs/Day Years Used Date Smoking Tobacco: Never Alcohol Use Standard Drinks/Week Comments Not Asked 0 (1 standard drink = 0.6 oz pur e alcohol) Comments No Sex and Gender Information Value Date Recorded Sex Assigned at Female 07/16/2021 10:37 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 Legal Sex Female 6:50 AM CDT Gender Identity Female 07/16/2021 10:37 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 Sexual Orientation Straight 07/16/2021 10 :37 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 documented as of this encounter Progress Notes * Ruben Morin DC - 06/23/2012 12:00 AM CDT TOOTH GRINDING MACHINE OPERATOR documented in this encounter Plan of Treatment Upcoming Encounters Date Type Department Care Team (Late Contact Info) Description 05/24/2025 11:00 AM CDT Appointment [facility] Dental [address] [phone] Marilee Akers, [facility] [address] [place] [address] documented as of this encounter Visit Diagnoses Not on filedocumented in this encounter Additional Health Concerns Infection Onset Date Last Indicated Resolved Time R/O COVID19 12/28/2020 12/28/2020 12/28/2020 6:24 PM CDT documented as of this encounter Care Teams Wireless Watcher Relationship Specialty Start Date End Date Marylin Caceres MD [address] [place] [address] PCP - General Family Practice 02/08/19 documented as of this encounter
--- OUTSIDE RECORDS SUMMARY | 2025-04-13 07:49 | XMS_ITS | Clinical Summary ---
Author Organization [facility] Address [address] [place] [address] Care Team Providers Care Energy Assistant Name Role Phone Marylin Caceres MD Primary Care Provider [phone] Source Comments You are receiving this document as you are listed as the primary care provider,follow-up provider, or the patient has been referred to you for consultation.This is in compliance with the Medicare and[facility] Hospital[facility] EHR Incentive Program,which states Providers who transition their patient to another setting of careor provider of care or refers their patient to another provider of care shouldprovide summary care record for each transition of care or referral. [facility] Allergies Active Allergy Reactions Criticality Noted Date Comments Latex Rash High 06/22/2012 Medications cetirizine (ZYRTEC) 10 MG tablet Take 1 Tablet (10 mg) by mouth daily. Active Multiple Vitamin (MULTIVITAMINS OR) Active escitalopram oxalate (LEXAPRO) 20 MG tablet 0 Active Glucosamine-Cho ndroit-Vit C-Mn (GLUCOSAMINE CHONDR 1500 COMPLX OR) 0 Active [place]-3 Fatty Acids (FISH-EPA OR) 0 Active spironolactone [...] Sex Assigned at Female 07/16/2021 10:37 PM BREAD ROOM HAND Legal Sex Female 6:50 AM CDT Gender Identity Female 07/16/2021 10:37 PM BREAD ROOM HAND Sexual Orientation Straight 07/16/2021 10 :37 PM BREAD ROOM HAND Last Filed Vital Signs Vital Sign Reading Time Taken Comments Blood Pressure 99/64 02/08/2019 10:03 AM CDT Pulse 61 01/06/2024 7:21 AM CDT Temperature 36.9 C (98.4 F) 09/25/2012 10:04 AM BREAD ROOM HAND Respiratory Rate 16 09/25/2012 10:04 AM BREAD ROOM HAND Oxygen Saturation 96% 09/25/2012 10:04 AM BREAD ROOM HAND Inhaled Oxygen Concentration - - Weight 68 kg (150 lb) 10/05/2012 8:21 AM BREAD ROOM HAND Height 170.2 cm (5' 7) 08/13/2012 8:22 AM BREAD ROOM HAND Body Mass Index 23.49 08/13/2012 8:22 AM BREAD ROOM HAND Plan of Treatment Upcoming Encounters Date Type Department Care Team (Late st Contact Info) Description 05/24/2025 11:00 AM CDT Appointment [facility] [address] [place] [phone] [facility] [address] [place] [address] Health Maintenance Due Date Last Done Comments Hep C Screening (Preventive Services) 1981 Mammogram 1981 HIV Screening (Preventive Services) 1997 Adult Preventive Visit 1999 HepB Vaccine (1) 2000 HPV Vaccine (1 - 3-dose SCDM series) 2008 Cervical Cancer Screening Due 04/22/2012 04/21/2012 COVID-19 Vaccine (3 season) 2024 12/11/2020, 11/20/2020 DTaP/Tdap/Td Vaccine (3 - Tdap) 03/16/2025 03/16/2015, 10/24/2009 Influenza Vaccine (#1) 2025 , 06/13/2019, 05/24/2019, Additional history exists Zoster/Shingles Vaccine [...] topic Insurance [id number] [place] [id number] [place] [id number] [place] [id number] [employer] S[employer]F INSURED DENTAL Care Teams Energy Assistant Relationship Specialty Start Date End Date Marylin Caceres MD [address] [place] [address] PCP - General Family Practice 02/08/19
--- OUTSIDE RECORDS SUMMARY | 2025-04-13 07:49 | XMS_ITS | Clinical Summary ---
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 Gender Identity Not on file Sexual Orientation [...] Health Maintenance Due Date Last Done Comments Tetanus booster 1992 Depression screening for age 12+ 1993 HIV for age 15-65 1996 BMI (ht and wt on same day) for age 18+ 1999 Hepatitis C screening for age 18-79 1999 Hepatitis B series for 19+ (1 of 3 - 19+ 3-dose series) 2000 COVID-19 vaccine series (2023- season) 2024 05/23/2023, 05/03/2022, 06/21/2021, Additional history exists Influenza Vaccine (#1) 2025 Pap test for age 21-65 03/09/2027 [...] 16 Negative Negative 03/16/2024 6:23 AM CDT [facility] TYPE 18 Negative Negative 03/16/2024 6:23 AM CDT [facility] OTHER HIGH RISK TYPES Negative Negative 03/16/2024 6:23 AM CDT [facility] Other (Cervical/Vagina l) 03/09/2024 8:00 AM CDT 03/11/2024 10:03 AM CDT Narrative [facility] - 03/16/2024 6:23 AM CDT HPV types 16, 18, 31, 33, 35, 39, 45, 51, 52, 56, 58, 59, 66 and 68 DNA were undetectable or below the pre-set threshold. Methodology: Shankar Reyes 4800 HPV Test us Nidia Rios MD MICROBIOLOGY Final Re sult [facility] [address] [place] [address], from Last 3 Months or Most Recently Relevant to Health Maintenance Insurance [employer] [address] [place] [id number] [place] [id number] Care Teams Tube Room Cashier Relationship Specialty Start Date End Date Nidia Rios MD [address] [place] [address] PCP - General Family Practice 06/30/23
--- NOTE | 2025-04-13 08:06 | ED.GENADULT ---
HPI - General Adult General Chief complaint: Nausea/Vomiting Stated complaint: heartburn, upper chest pain, vomiting Time Seen by Provider: 04/13/25 08:05 History of Present Illness HPI narrative: Patient presents to the emergency department complaining of vomiting. Patient states she woke up this morning with heart burn and has tried to take 3 different things for this however vomits every time. Patient denies any recent illness. No diarrhea. Endorses burning in her upper chest. 44-year-old presenting to the emergency department with complaint of burning epigastric area pain upon waking this morning. Does have a history of heartburn and tried famotidine that began vomiting and tried couple other antacids but still vomiting. Pain has become more sharp radiated into her left shoulder and into her back. No symptoms into her extremities. Does not have any known cardiac problems. No fever. No hematochezia noted. Still nauseated. Has lost about 8 lb over the summer. Related Data Home Medications ?Medication ?Instructions ?Recorded ?Confirmed glucosamine HCl 1,500 mg tablet 1,500 mg PO QDAY 02/27/22 04/13/25 omega 0-cep-vwu-fish oil 1,000 mg 1 cap PO QDAY 02/27/22 04/13/25 (120 mg-180 mg) capsule (Fish Oil) multivitamin 1 tab PO QDAY 06/04/22 04/13/25 triamcinolone acetonide 0.025 % 1 applic topical .Bedtime 06/04/22 04/13/25 topical cream Previous Rx's ?Medication ?Instructions ?Recorded escitalopram oxalate 10 mg tablet 10 mg PO QDAY #90 tabs 04/05/25 (Lexapro) rosuvastatin 5 mg tablet 5 mg PO QDAY #90 tabs 04/05/25 spironolactone 50 mg tablet 50 mg PO QAM #90 tabs 04/05/25 Allergies Allergy/AdvReac Type Severity Reaction Status Date / Time latex Allergy Intermediate rash, hives Verified 04/13/25 07:56 Review of Systems Status of ROS: Reports: 6 or more systems reviewed and unremarkable except as noted in History and below [facility] Medical History Overweight (BMI 25.0-29.9) ?E66.3 - Overweight (ICD-10) 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 - Genetic susceptibility to other malignant neoplasm (ICD-10) ?Z15.01 - Genetic susceptibility to malignant neoplasm of breast (ICD-10) ?Z15.89 - Genetic susceptibility to other disease (ICD-10) Menorrhagia with regular cycle (~04/04/22) ?N92.0 - Excessive and frequent menstruation with regular cycle (ICD-10) Recurrent nephrolithiasis ?N20.0 - Calculus of kidney (ICD-10) 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 ?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.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 - 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) drug therapy (ICD-10) Herpes zoster oticus (~2016) ?B02.21 - Postherpetic geniculate ganglionitis (ICD-10) Anxiety and depression ?F41.9 - Anxiety disorder, unspecified (ICD-10) ?F32.A - Depression, unspecified (ICD-10) Acne ?L70.9 - Acne, unspecified (ICD-10) Surgical History S/P endometrial ablation (06/10/22) ?Z98.890 - Other specified postprocedural states (ICD-10) History of ovarian cystectomy (2004) ?Z98.890 - Other specified postprocedural states (ICD-10) ?Z87.42 - Personal history of other diseases of the female genital tract (ICD-10) History of nephrostomy (2005) History of lithotripsy (2006) ?Z98.890 - Other specified postprocedural states (ICD-10) History of dilation and curettage (2013) ?Z98.890 - Other specified postprocedural states (ICD-10) Family History Father Brain cancer, Onset Age: 32 Sister Anxiety Daughter Depression Grandfather Heart disease Aunt Breast cancer, Onset Age: 40 Social History 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: , 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, 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, lives in [place] exercises 3 times per week- walks life time non-smoker alcohol 3-4/ week What is your current living situation?: I presently have a place to live Problems where you live: no known problems In the past 12 months, utilities in danger of being shut off: no In past 12 months, lack of transportation kept you from medical appts, meetings, work, or getting things needed for daily living: no In the past 12 mos, have been you worried that your food would run out before you had money to buy more?: never true In the past 12 mos, the food you bought just didn't last and you didn't have money to buy more?: never true Smoking Status: Never smoker How often do you have a drink containing alcohol: monthly or less How often do you have six or more drinks on one occasion: Never AUDIT-C Alcohol total score: 1 Non-prescribed substance use: denies use Caffeine: Yes How often does anyone, including family, friends and others, physically hurt you: never How often does anyone, including family, friends and others, insult or talk down to you: never How often does anyone, including family, friends and others, threaten you with harm: never How often does anyone, including family, friends and others, scream or curse at you: never Exam Narrative: Exam Narrative: Pleasant. Clearly uncomfortable. She is restless in discomfort. Breathing easily. Lungs appear to be clear. Heart regular rate and rhythm without murmur rub or gallop. Abdomen is soft little tender in the epigastrium but especially so in the right upper quadrant. Not exactly positive Lee's. For in no peritoneal signs. No flank pain. Extremities with equal peripheral pulses. She is well-perfused peripherally. Tattoo on ankle and low back. Skin otherwise warm and for dry. Const: Vital Signs, click to edit/add: Vital Signs - 24 hr 04/13/25 07:50 04/13/25 10:00 04/13/25 11:04 Temperature 98.2 F Pulse Rate 63 Pulse Rate [Right Pulse Oximeter] 65 55 L Respiratory Rate 18 18 Blood Pressure 145/93 H Blood Pressure [Ri ght Upper Arm] 132/75 140/86 H Pulse Oximetry 99 100 99 Oxygen Delivery Me thod Room Air Room Air 04/13/25 11:05 04/13/25 11:15 04/13/25 11:30 Temperature Pulse Rate 71 69 57 L Pulse Rate [Right Pulse Oximeter] Respiratory Rate Blood Pressure Blood Pressure [Ri ght Upper Arm] Pulse Oximetry 98 99 99 Oxygen Delivery Me thod 04/13/25 11:32 04/13/25 11:45 04/13/25 12:00 Temperature Pulse Rate 61 61 62 Pulse Rate [Right Pulse Oximeter] Respiratory Rate Blood Pressure 138/83 Blood Pressure [Ri ght Upper Arm] Pulse Oximetry 99 99 98 Oxygen Delivery Me thod 04/13/25 12:02 04/13/25 12:15 04/13/25 12:28 Temperature Pulse Rate 60 60 Pulse Rate [Right Pulse Oximeter] 61 Respiratory Rate 18 Blood Pressure 132/81 Blood Pressure [Ri ght Upper Arm] 132/81 Pulse Oximetry 99 99 99 Oxygen Delivery Me thod Room Air 04/13/25 12:30 04/13/25 12:32 04/13/25 12:45 Temperature Pulse Rate 62 63 60 Pulse Rate [Right Pulse Oximeter] Respiratory Rate Blood Pressure 128/81 Blood Pressure [Ri ght Upper Arm] Pulse Oximetry 99 99 100 Oxygen Delivery Me thod Documenting provider has reviewed patient's vital signs: yes Course Reevaluation(s) Time of Reevaluation #1: 09:10 Reevaluation #1: On reassessment is feeling improved and does not feel like she needs any more treatment. Eyes are closed is no longer restless. 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 Labs are pending the white count returns mildly elevated at 13.2. Point of care troponin is negative EKG independently reviewed by me with sinus bradycardia at a rate of 57. Chest x-ray one-view independently reviewed by me looks WNL. Vital Signs Vital signs: Initial Vital Signs Temperature 98.2 F 04/13/25 07:50 Temperature Source Temporal Artery Scan 04/13/25 07:50 Pulse Rate 65 04/13/25 07:50 Pulse Rhythm Regular 04/13/25 07:50 Pulse Strength 3+ Normal 04/13/25 07:50 Respiratory Rate 18 04/13/25 07:50 Blood Pressure 132/75 04/13/25 07:50 Blood Pressure Mean 94 04/13/25 07:50 Blood Pressure Position Sitting 04/13/25 07:50 Pulse Oximetry 99 04/13/25 07:50 Oxygen Delivery Method Room Air 04/13/25 07:50 Vital Signs Temperature 98.2 F 04/13/25 07:50 Pulse Rate 65 04/13/25 07:50 Respiratory Rate 18 04/13/25 07:50 Blood Pressure 132/75 04/13/25 07:50 Pulse Oximetry 99 04/13/25 07:50 Oxygen Delivery Method Room Air 04/13/25 07:50 Temperature 98.2 F 04/13/25 07:50 Pulse Rate 60 04/13/25 12:45 Respiratory Rate 18 04/13/25 12:28 Blood Pressure 128/81 04/13/25 12:32 Pulse Oximetry 100 04/13/25 12:45 Oxygen Delivery Method Room Air 04/13/25 12:28 Medications Administered Medications: Discontinued Medications Generic Name Dose Route Start Last Admin Trade Name Freq PRN Reason Stop Dose Admin Sodium Chloride 1,000 mls @ 1,000 mls/hr 04/13/25 08:22 04/13/25 09:35 0.9 % Sodium Chloride 1000 Ml IV 04/13/25 09:21 Infused .Q1H ONE Infusion Ketorolac Tromethamine 30 mg 04/13/25 08:22 04/13/25 08:41 Ketorolac 30 Mg/Ml Inj IVP 04/13/25 08:23 30 mg ONCE ONE Administration Morphine Sulfate 4 mg 04/13/25 08:22 04/13/25 08:41 Morphine 4 Mg/Ml Inj IVP 04/13/25 08:23 4 mg ONCE ONE Administration Ondansetron HCl 4 mg 04/13/25 08:22 04/13/25 08:41 Ondansetron 2 Mg/Ml Inj IVP 04/13/25 08:23 4 mg ONCE ONE Administration Medical Decision Making MDM Narrative Medical decision making narrative: With suspect biliary colic here. Certainly though might be cardiac. Will evaluate for ischemic cardiovascular disease, pulmonary embolus and the vascular dissection screened initially with D-dimer. Doubtful that this is pneumothorax or pneumomediastinum. Heartburn could certainly be doing this as well. Initiating treatment though with Zofran, IV fluids, ketorolac and morphine. Chest x-ray one view independently reviewed by me looks to be WNL without pneumothorax or pneumomediastinum or infiltrate. Upon reassessment is improved. Appears quite sleepy from morphine. Labs are unremarkable other than mildly elevated white count. Troponin transaminases are normal. I think description of symptoms is quite consistent with biliary colic though and I would like to do an ultrasound yet. Discussed findings of limited abdominal ultrasound with affiliate marketing specialist. Positive for mobile stones. Measurements looks normal and without inflammatory changes. She does feel like she would like to return home. Did discuss pain management in it and nausea options. I did also inform General surgery of this case anticipating outpatient follow-up. See patient discharge plan for further discussion Stay well-hydrated. Would avoid fatty foods for now. We are arranging for a follow-up in General surgery to discuss next steps. Will be prescribing Zofran for nausea and Percocet an opiate with acetaminophen from [facility]. Be seen for persistent, uncontrolled pain, repeated vomiting, fever. Otherwise follow-up in clinic as indicated below. Appointment with Dr. Smith at the [facility], on Thursday. 04/18, at 11:00AM. [address] [place] [address] Medical Records Medical records reviewed: Yes I reviewed the patient's medical records Lab Data Lab results reviewed: Yes I reviewed the patient's lab results Labs: Lab Results 04/13/25 04/13/25 Range/Units 08:22 08:50 WBC 13.22 H (4.50-11.00) K/uL RBC 5.08 (4.00-5.20) m/uL Hgb 14.7 (12.0-16.0) gm/dL Hct 44.3 (33.0-51.0) % MCV 87 (80-100) fL MCH 29 (26-34) pg MCHC 33 (32-36) gm/dL RDW Coeff of Ritu 12.6 (11.5-15.5) % Plt Count 294 (140-440) K/uL Neut % (Auto) 85.8 H (42.0-72.0) % Lymph % (Auto) 9.8 L (20-44) % [place] % (Auto) 3.6 (0.0-11.0) % Eos % (Auto) 0.3 (0.0-7.0) % Baso % (Auto) 0.3 (0.0-3.0) % Neut # (Auto) 11.30 H (1.7-7.0) K/uL Lymph # (Auto) 1.30 (0.90-2.90) K/uL [place] # (Auto) 0.50 (0.00-0.90) K/UL Eos # (Auto) 0.00 (0.00-0.50) K/uL Baso # (Auto) 0.00 (0.00-0.30) K/uL Abs Immat Gran (auto) 0.00 (0.00-0.30) K/uL Imm/Tot Granulo (auto) 0.2 % D-Dimer Quant (PE/DVT) 0.31 (0.00-0.50) ug/ml Sodium 139 (135-149) mmol/L Potassium 3.8 (3.6-5.1) mmol/L Chloride 105 (96-114) mmol/L Carbon Dioxide 23 (20-32) mmol/L Anion Gap 11 (7-15) mEq/L BUN 18 (5-24) mg/dL Creatinine 0.7 (0.5-1.5) mg/dL Estimated Creat Clear 100.77 Estimated GFR 110 ml/min Glucose 117 H (60-115) mg/dL Calcium 9.6 (8.4-10.6) mg/dL Total Bilirubin 0.3 (0.1-1.5) mg/dL Direct Bilirubin 0.2 (0.0-0.5) mg/dL AST 31 (12-35) U/L ALT 24 (4-35) U/L Alkaline Phosphatase 91 (40-150) U/L Troponin I < 0.01 (0.01-0.04) ng/mL C-Reactive Protein 1.0 (0.5-1.0) mg/dL Total Protein 8.5 H (6.0-8.3) g/dL Albumin 4.7 (3.3-5.0) g/dL Lipase 102 (23-300) U/L POC Troponin I 0.00 L (0.01-0.04) ng/ml ECG Data Attestation: I personally reviewed and interpreted this ECG as follows: (Sinus bradycardia 57. No ischemic changes appreciated) Discharge Plan Discharge Clinical Impression: Abdominal pain, Biliary colic, Cholelithiasis Patient Disposition: Home w/ Parent or Adult Condition: Improved Additional Instructions: Stay well-hydrated. Would avoid fatty foods for now. We are arranging for a follow-up in General surgery to discuss next steps. Will be prescribing Zofran for nausea and Percocet an opiate with acetaminophen from [facility]. Be seen for persistent, uncontrolled pain, repeated vomiting, fever. Otherwise follow-up in clinic as indicated below. Appointment with Dr. Smith at the [facility], on Thursday. 04/18, at 11:00AM. [address] [place] [address] Prescriptions: No Action triamcinolone acetonide 0.025 % cream 1 applic topical .Bedtime Rx Instructions: APPLY SPARINGLY TO AFFECTED AREA multivitamin Tablet 1 tab PO QDAY omega 9-cau-der-fish oil [Fish Oil] 1,000 mg (120 mg-180 mg) capsule 1 cap PO QDAY glucosamine HCl 1,500 mg tablet 1,500 mg PO QDAY Rx Instructions: administer with a meal escitalopram oxalate [Lexapro] 10 mg tablet 10 mg PO QDAY Qty: 90 3RF rosuvastatin 5 mg tablet 5 mg PO QDAY Qty: 90 3RF spironolactone 50 mg tablet 50 mg PO QAM Qty: 90 3RF Follow Up/Referrals: Nidia Rios MD [Primary Care Provider, Family Practice] Stand Alone Forms: [employer] Info Instructions
--- NOTE | 2025-04-13 08:22 | CRLHL7_ITS ---
For Patients: As a result of the Century Cures Act, medical imaging exams and procedure reports are released immediately into your electronic medical record. You may view this report before your referring provider. If you have questions, please contact your health care provider. INDICATION: Epigastric and shoulder pain TECHNIQUE: Chest 1 views. COMPARISON: None. FINDINGS/IMPRESSION: No focal consolidation, effusion or pneumothorax. Cardiac size is within normal limit without pulmonary edema. No acute osseous findings. Dictated by David Suero MD @ 04/13/2025 8:46:04 AM (Electronically Signed)
[2025-04-13] MEDS: ONDANSETRON 2 MG/ML inj 4 MG IVP (08:41)
[2025-04-13] MEDS: MORPHINE 4 MG/ML INJ IVP (08:41)
[2025-04-13 08:57] LABS: Hematocrit 44.3 % (33.0-51.0); Hemoglobin* 14.7 gm/dL (12.0-16.0); Immature Granulocytes Pct Auto 0.2 %; Lymphocytes Absolute Auto 1.30 K/uL (0.90-2.90); Mean Corpuscular HGB Conc 33 gm/dL (32-36); Mean Corpuscular Hemoglobin 29 pg (26-34); Mean Corpuscular Volume 87 fL (80-100); RDW Coefficient of Variation % 12.6 % (11.5-15.5); Red Blood Count 5.08 m/uL (4.00-5.20); White Blood Count* 13.22 K/uL (4.50-11.00)
[2025-04-13 08:58] LABS: Immature Granulocytes Abs Auto 0.00 K/uL (0.00-0.30); Slide Review Reflex No
[2025-04-13 09:03] LABS: Troponin, Point-of-Care* 0.00 ng/ml (0.01-0.04)
[2025-04-13 09:09] LABS: Albumin* 4.7 g/dL (3.3-5.0); Chloride* 105 mmol/L (96-114)
[2025-04-13 09:10] LABS: Potassium* 3.8 mmol/L (3.6-5.1); Sodium* 139 mmol/L (135-149)
[2025-04-13 09:12] LABS: Blood Urea Nitrogen* 18 mg/dL (5-24); Creatinine* 0.7 mg/dL (0.5-1.5); Est. Creatinine Clearance* 100.77; Estimated Glomerular Filt Rate 110 ml/min
[2025-04-13 09:13] LABS: Alanine Aminotransferase* 24 U/L (4-35); Alkaline Phosphatase* 91 U/L (40-150); Anion Gap 11 mEq/L (7-15); Aspartate Amino Transferase* 31 U/L (12-35); Bilirubin Direct* 0.2 mg/dL (0.0-0.5); Bilirubin Total* 0.3 mg/dL (0.1-1.5); Calcium* 9.6 mg/dL (8.4-10.6); Carbon Dioxide* 23 mmol/L (20-32); Glucose* 117 mg/dL (60-115); Total Protein* 8.5 g/dL (6.0-8.3)
[2025-04-13 09:14] LABS: D Dimer Quantitative* 0.31 ug/ml (0.00-0.50)
--- NOTE | 2025-04-13 09:50 | US_ITS ---
Patient: HEVER HOLLIS Facility:?[facility] Patient ID:?[id number] Site Patient ID:?[id number]. Site :?[id number] Study:?US-Abdomen RUQ-04/13/2025 11:24:24 AM Ordering Physician:Rangel Burch Final Report: INDICATION: Right upper quadrant, epigastric pain TECHNIQUE: Ultrasound abdomen limited. Sonographic images of the right upper quadrant were obtained using crockett-scale and color Doppler images. COMPARISON: CT abdomen and pelvis 02/11/2025. FINDINGS: Liver: Normal in size and echotexture. No suspicious masses. No intrahepatic biliary dilatation. Gallbladder: Mobile cholelithiasis. Normal wall thickness. No pericholecystic fluid. Negative sonographic Lee`s sign. Common bile duct: 4 mm. Pancreas: Incompletely visualized. Right kidney: Normal in size. Normal echotexture and cortex. No suspicious masses, stones, or hydronephrosis. Proximal abdominal aorta: Normal in caliber. IVC: Patent. Main portal vein: Patent. Ascites: None visualized. IMPRESSION: Cholelithiasis without evidence of acute cholecystitis. Otherwise unremarkable right upper quadrant ultrasound. Dictated by Umu Garcia MD @ 04/13/2025 11:45:01 AM (Electronic Signature)
== END 2025-04-13 12:51 | disposition home or self-care (01) ==
PROVIDERS: Emergency Provider Family Medicine; PCP Family Medicine
DX: K80.50 Calculus of bile duct without cholangitis or cholecystitis without obstruction (principal); K80.20 Calculus of gallbladder without cholecystitis without obstruction
CPT/HCPCS: 36415; 71045; 76705; 80048; 80076; 83690; 84484; 85025; 85379; 86140; 93005; 96374; 96375; 99284; J1885; J2270; J2405; J7030

== ENCOUNTER 2025-04-20 06:13 | Day surgery (SDC) | payer OTHER, SELFPAY ==
[2025-04-20] VITALS (14 sets, daily range): BP systolic 106–130; BP diastolic 67–94; PULSE 60–76; RESP 16–18; TEMP 36.2–36.7; O2SAT 95–99; BMI 26.6
[2025-04-20] MEDS: LACTATED RINGERS 1000 ML 1,000 ML 100 ML IV (06:20)
[2025-04-20 06:55] LABS: Ur HCG Qualitative* Negative (Negative)
--- NOTE | 2025-04-20 07:47 | P.GSOP_ITS ---
Operative Note Date of procedure: 04/20/25 Pre-op diagnosis: Cholecystitis Post-op diagnosis: Same Type of Procedure: Laparoscopic cholecystectomy Indications: The patient is a 44-year-old female with several days of abdominal pain, nausea and vomiting. The pain was severe enough that she presented to the emergency department, however, there she had gallstones but no imaging evidence of cholecystitis. She was discharged home with pain medications and nausea medication. However her symptoms have persisted. I recommended cholecystectomy and she agreed to proceed. Procedure Description: After discussing the risks and benefits of the procedure, the patient signed informed consent.? The operative site was marked and the patient was brought to the operating room and placed on the operating table in supine position.? Care was taken to pad the patient's pressure points.?? The patient was then intubated by anesthesia.?? The operative site was then prepped and draped in the usual sterile fashion.? A time-out was then performed. Entrance to the abdomen was gained via a 5 mm Visiport in the left upper quadrant. The abdomen was insufflated and briefly surveyed for signs of injury. There was none. A 10 mm umbilical port was placed as well as 2 working ports along the right costal margin, all under direct vision. The patient was then placed in reverse Trendelenburg position with the right side up. The gallbladder fundus was grasped and retracted cephalad. The gallbladder was markedly inflamed and edematous. A small amount of dissection was needed to free omental adhesions from the gallbladder. The infundibulum was grasped. A combination of hook cautery and blunt dissection was used to carefully dissect out the cystic duct and artery until they could clearly be seen entering the gallbladder without any intervening structures. The tissue was very inflamed and bled ea sily. The gallbladder was dissected off the cystic plate to achieve the critical view. Once this was achieved the cystic duct and artery were each clipped with 2 clips proximally and 1 clip distally and transected with the scissors. The gallbladder was then taken off of the liver bed and removed from the abdomen using an Endo-Catch bag. Because of the gallstones and the inflammation of the gallbladder, the fascial opening had to be widened to extract the gallbladder. The gallbladder bed was surveyed for hemostasis which appeared adequate. A small amount of bile which had spilled was suctioned from the abdomen. The ports were then removed and the abdomen desufflated. The umbilical port fascia was closed with 0 Vicryl in a running fashion. The skin was closed with absorbable subcuticular suture. Sterile dressings were applied. Instrument sponge and needle counts were correct at the end of the case. The patient was then woken and transferred to the PACU in stable condition. ? The patient tolerated the procedure well. Findings: Edematous gallbladder with stones contained within Anesthesia: GETA Surgeon: Parisa Smith MD Estimated blood loss (mL): 25 Specimen: Gallbladder Condition: stable Disposition: PACU
--- NOTE | 2025-04-20 07:47 | W.PM.H&PU ---
History & Physical Update History & Physical Update H&P Reviewed and patient assessed: No changes noted
[2025-04-20] MEDS: BUPIVACAINE 0.25% 30 ML 15 ML INJECTION (07:55)
--- NOTE | 2025-04-20 09:31 | P.ANES_ITS ---
Anesthesia Charges Start Date/Time Anesthesia Start Date: 04/20/25 Anesthesia Start Time: 07:41 Stop Date/Time Anesthesia Stop Date: 04/20/25 Anesthesia Stop Time: 09:30 Coding CPT Codes CPT Codes: ANESTH SURG UPPER ABDOMEN - 83989 ([id number]) P2 - PATIENT W/MILD SYST DISEASE, QK - INFORMATION SYSTEMS SECURITY ANALYST 2-4 CNCRNT ANES PROC, QX - ALL ROUND BUTCHER SVC W/ MD MED DIRECTION
--- NOTE | 2025-04-20 09:31 | W.ANESCHARGE ---
Anesthesia Charges Start Date/Time Anesthesia Start Date: 04/20/25 Anesthesia Start Time: 07:41 Stop Date/Time Anesthesia Stop Date: 04/20/25 Anesthesia Stop Time: 09:30 Coding CPT Codes CPT Codes: ANESTH SURG UPPER ABDOMEN - 70049 ([id number]) P2 - PATIENT W/MILD SYST DISEASE, QK - TAIL BOARD WORKER 2-4 CNCRNT ANES PROC, QX - LIVESTOCK YARD ATTENDANT SVC W/ MD MED DIRECTION
[2025-04-20] MEDS: ACETAMINOPHEN 325 MG TABLET 650 MG PO (10:27)
--- NOTE | 2025-04-20 11:22 | P.ANES_ITS ---
Anesthesia Charges Start Date/Time Anesthesia Start Date: 04/20/25 Anesthesia Start Time: 07:41 Stop Date/Time Anesthesia Stop Date: 04/20/25 Anesthesia Stop Time: 09:30 Coding CPT Codes CPT Codes: ANESTH SURG UPPER ABDOMEN - 21130 ([id number]) QK - CASKET ASSEMBLER 2-4 CNCRNT ANES PROC, QX - ATHLETIC GEAR CUSTODIAN SVC W/ MD MED DIRECTION, P2 - PATIENT W/MILD SYST DISEASE
--- NOTE | 2025-04-20 11:22 | W.ANESCHARGE ---
Anesthesia Charges Start Date/Time Anesthesia Start Date: 04/20/25 Anesthesia Start Time: 07:41 Stop Date/Time Anesthesia Stop Date: 04/20/25 Anesthesia Stop Time: 09:30 Coding CPT Codes CPT Codes: ANESTH SURG UPPER ABDOMEN - 22312 ([id number]) QK - LEARNING AND DEVELOPMENT ASSISTANT 2-4 CNCRNT ANES PROC, QX - FURNACE ROOM SUPERVISOR SVC W/ MD MED DIRECTION, P2 - PATIENT W/MILD SYST DISEASE
== END 2025-04-20 11:35 | disposition home or self-care (01) ==
PROVIDERS: PCP Family Medicine; Visit Provider Surgery
PROC: 0FT44ZZ Resection of Gallbladder, Percutaneous Endoscopic Approach (ICD-10-PCS; CPT 47562; principal; 2025-04-20 07:30)
DX: K80.10 Calculus of gallbladder with chronic cholecystitis without obstruction (principal)
CPT/HCPCS: 47562; 00790; 81025; 88304; A9270; J0330; J0665; J0690; J1100; J1171; J1885; J2250; J2405; J2704; J3010; J3490; J7120